=== PATIENT | female | born 1990 | race American Indian/Alaskan Native ===

== ENCOUNTER 2018-08-13 18:36 | Observation (INO) | payer MEDICAID ==
[2018-08-13] MEDS ORDERED: Acetaminophen 325 MG Tab PO ONE (19:21)
[2018-08-14] MEDS: Acetaminophen 325 MG Tab PO PRN ×2 (01:30→08:44)
[2018-08-14] MEDS ORDERED: Sodium Chloride 0.9% 10 ML Syringe FLUSH PRN (02:06)
[2018-08-14] MEDS ORDERED: Labetalol 100 MG Tab PO SCH (08:00)
== END 2018-08-14 11:35 | disposition home or self-care (01) ==
LOC: DL.OBCHECK 18:36 → DL.MS 21:18 → UNDOADMOB 21:18
PROVIDERS: ADMIT Obstetrics & Gynecology; ATTEND Obstetrics & Gynecology
DX: Z34.83 Encounter for supervision of other normal pregnancy, third trimester (principal); F12.90 Cannabis use, unspecified, uncomplicated; K08.89 Other specified disorders of teeth and supporting structures; M79.89 Other specified soft tissue disorders; I10 Essential (primary) hypertension; Z88.1 Allergy status to other antibiotic agents
CPT/HCPCS: 36415; 59025; 80305; 81003; 82565; 82570; 83615; 84156; 84450; 84460; 84520; 84550; 85027; A9270

== ENCOUNTER 2018-12-04 11:26 | Inpatient (IN) | payer MEDICAID, OTHER ==
[2018-12-04 11:54] LABS: ANION GAP 11.3; CHLORIDE,CL 104 mmol/L (101-111); SODIUM,NA 135 mmol/L (135-145)
[2018-12-04] MEDS ORDERED: Iopamidol 612 MG/ML 75 ML Bottle IVPUSH ONE (12:30)
[2018-12-04] MEDS ORDERED: Sodium Chloride 0.9% 1,000 ML IV ONE (12:30)
[2018-12-04] MEDS ORDERED: Meropenem Premix 1 GM in Premix Bag 1 BAG IV ONE (14:46)
--- NOTE | 2018-12-04 14:53 | EDM.PDOC ---
Scribed by Amber Maher 12/04/18 2118 for Mando Lund PA ED HPI GENERAL MEDICAL PROBLEM - General Chief Complaint: Genitourinary Problem Stated Complaint: AMBULANCE Time Seen by Provider: 12/04/18 11:30 Source of Information: Reports: Patient, RN, RN Notes Reviewed History Limitations: Reports: No Limitations - History of Present Illness INITIAL COMMENTS - FREE TEXT/NARRATIVE: A 28-year-old female presents to ER by [facility] with left flank pain that started last night. Patient reports marijuana and methamphetamine use 2 days ago. Patient reports history of kidney disease on treated with Cipro. She took 1 pill last night and 1 this a.m. Onset: Gradual Duration: Getting Worse Location: Reports: Other (left flank) Quality: Reports: Ache Severity: Severe Improves with: Reports: None Worsens with: Reports: None Associated Symptoms: Reports: No Other Symptoms Treatments PIN CHASER: Reports: Acetaminophen Left Flank Pain Score (Numeric/FACES): 10 - Related Data Allergies Allergy/AdvReac Type Severity Reaction Status Date / Time amoxicillin Allergy Severe Hives Verified 12/04/18 11:26 Home Meds: Home Meds PNV95/Ferrous Fumarate/FA [ Tablet] 1 tab PO DAILY 08/04/18 [History] Labetalol [Normodyne] 200 mg PO BID 10/07/18 [History] Past Medical History - Past Health History Medical/Surgical History: Denies Medical/Surgical History Cardiovascular History: Reports: Hypertension 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 ED EXAM, RENAL/ - Physical Exam Exam: See Below Exam Limited By: No Limitations General Appearance: Anxious Eye Exam: Bilateral Eye: EOMI, Normal Inspection, PERRL Ears: Normal External Exam, Normal Canal, Hearing Grossly Normal, Normal TMs Nose: Normal Inspection, Normal Mucosa, No Blood Throat/Mouth: Normal Inspection, Normal Lips, Normal Teeth, Normal Gums, Normal Oropharynx, Normal Voice, No Airway Compromise Head: Atraumatic, Normocephalic Neck: Normal Inspection, Supple, Non-Tender, Full Range of Motion Respiratory/Chest: No Respiratory Distress, Lungs Clear, Normal Breath Sounds, No Accessory Muscle Use, Chest Non-Tender Cardiovascular: Normal Peripheral Pulses, Regular Rate, Rhythm, No Edema, No Gallop, No JVD, No Murmur, No Rub GI/Abdominal: Other (left upper abdominal pain. Left flank pain. ) (Female) Exam: Deferred Rectal (Female) Exam: Deferred Back Exam: Normal Inspection, Full Range of Motion, NT Extremities: Normal Inspection, Normal Range of Motion, Non-Tender, Normal Capillary Refill, No Pedal Edema Neurological: Alert, Oriented, CN II-XII Intact, Normal Cognition, Normal Gait, Normal Reflexes, No Motor/Sensory Deficits Psychiatric: Normal Affect, Normal Mood Skin Exam: Warm, Dry, Intact, Normal Color, No Rash Lymphatic: No Adenopathy Course - Vital Signs Last Recorded V/S: Last Vital Signs Temp 37.1 C 12/04/18 11:23 Pulse 103 H 12/04/18 11:23 Resp 19 12/04/18 11:23 BP 134/98 H 12/04/18 11:23 Pulse Ox 99 12/04/18 11:23 - Orders/Labs/Meds Orders: Active Orders 24 hr Category Date Time Status Abdomen Pelvis w Cont [CT] Urgent Exams 12/04/18 12:30 Taken CULTURE BLOOD [BC] Stat Lab 12/04/18 11:25 Received CULTURE BLOOD [BC] Stat Lab 12/04/18 14:46 Ordered CULTURE URINE [RM] Urgent Lab 12/04/18 11:38 Received Meropenem Premix [Meropenem] 1 gm Med 12/04/18 14:46 Ordered Premix Bag 1 bag IV ONETIME Medication Orders Meropenem/Sodium Chloride 1 gm (/ Premix) 50 mls @ 100 mls/hr IV ONETIME ONE Stop: 12/04/18 15:15 Labs: Laboratory Tests 12/04/18 12/04/18 12/04/18 Range/Units 11:25 11:25 11:25 WBC 15.0 H (5.0-10.0) 10^3/uL RBC 4.51 (4.2-5.4) 10^6/uL Hgb 11.6 L (12.0-16.0) g/dL Hct 37.0 (37.0-47.0) % MCV 82.0 (80-100) fL MCH 25.7 L (27.0-34.0) pg MCHC 31.4 L (33.0-35.0) g/dL Plt Count 246 (150-450) 10^3/uL Neut % (Auto) 81.9 H (42.2-75.2) % Lymph % (Auto) 8.9 L (20.5-50.1) % [place] % (Auto) 8.5 H (2-8) % Eos % (Auto) 0.6 L (1.0-3.0) % Baso % (Auto) 0.1 (0.0-1.0) % Sodium 135 (135-145) mmol/L Potassium 3.3 L (3.6-5.0) mmol/L Chloride 104 (101-111) mmol/L Carbon Dioxide 23.0 (21.0-31.0) mmol/L Anion Gap 11.3 BUN 7 (7-18) mg/dL Creatinine 0.6 (0.6-1.3) mg/dL Est Cr Clr Drug Dosing 130.68 mL/min Estimated GFR (MDRD) > 60 BUN/Creatinine Ratio 11.66 Glucose 105 (74-105) mg/dL Lactic Acid 0.7 (0.5-2.2) mmol/L Calcium 8.5 (8.4-10.2) mg/dl Total Bilirubin 0.8 (0.2-1.0) mg/dL AST 26 (10-42) IU/L ALT 48 (10-60) IU/L Alkaline Phosphatase 67 (42-121) IU/L Total Protein 6.8 (6.7-8.2) g/dl Albumin 3.6 (3.2-5.5) g/dl Globulin 3.2 Albumin/Globulin Ratio 1.13 Urine Color (YELLOW) Urine Appearance (CLEAR) Urine pH (5.0-9.0) Ur Specific [place] (1.005-1.030) Urine Protein (NEGATIVE) Urine Glucose (UA) (NEGATIVE) Urine Ketones (NEGATIVE) Urine Occult Blood (NEGATIVE) Urine Nitrite (NEGATIVE) Urine Bilirubin (NEGATIVE) Urine Urobilinogen (0.2-1.0) mg/dL Ur Leukocyte Esterase (NEGATIVE) Urine RBC /HPF Urine WBC (0-5/HPF) /HPF Ur Epithelial Cells (NOT SEEN) /HPF Amorphous Sediment (NOT SEEN) /HPF Urine Bacteria (0-FEW/HPF) /HPF Urine Mucus (NOT SEEN) /LPF Urine HCG, Qual Urine Opiates Screen (NEGATIVE) Ur Oxycodone Screen (NEGATIVE) Urine Methadone Screen (NEGATIVE) Ur Barbiturates Screen (NEGATIVE) U Tricyclic Antidepress (NEGATIVE) Ur Phencyclidine Scrn (NEGATIVE) Ur Amphetamine Screen (NEGATIVE) U Methamphetamines Scrn (NEGATIVE) Urine MDMA Screen (NEGATIVE) U Benzodiazepines Scrn (NEGATIVE) Urine Cocaine Screen (NEGATIVE) U Marijuana (THC) Screen (NEGATIVE) 12/04/18 12/04/18 12/04/18 Range/Units 11:34 11:38 11:38 WBC (5.0-10.0) 10^3/uL RBC (4.2-5.4) 10^6/uL Hgb (12.0-16.0) g/dL Hct (37.0-47.0) % MCV (80-100) fL MCH (27.0-34.0) pg MCHC (33.0-35.0) g/dL Plt Count (150-450) 10^3/uL Neut % (Auto) (42.2-75.2) % Lymph % (Auto) (20.5-50.1) % Crowley % (Auto) (2-8) % Eos % (Auto) (1.0-3.0) % Baso % (Auto) (0.0-1.0) % Sodium (135-145) mmol/L Potassium (3.6-5.0) mmol/L Chloride (101-111) mmol/L Carbon Dioxide (21.0-31.0) mmol/L Anion Gap BUN (7-18) mg/dL Creatinine (0.6-1.3) mg/dL Est Cr Clr Drug Dosing mL/min Estimated GFR (MDRD) BUN/Creatinine Ratio Glucose (74-105) mg/dL Lactic Acid (0.5-2.2) mmol/L Calcium (8.4-10.2) mg/dl Total Bilirubin (0.2-1.0) mg/dL AST (10-42) IU/L ALT (10-60) IU/L Alkaline Phosphatase (42-121) IU/L Total Protein (6.7-8.2) g/dl Albumin (3.2-5.5) g/dl Globulin Albumin/Globulin Ratio Urine Color Yellow (YELLOW) Urine Appearance Clear (CLEAR) Urine pH 7.0 (5.0-9.0) Ur Specific [place] 1.025 (1.005-1.030) Urine Protein 30 H (NEGATIVE) Urine Glucose (UA) Negative (NEGATIVE) Urine Ketones Negative (NEGATIVE) Urine Occult Blood Small H (NEGATIVE) Urine Nitrite Negative (NEGATIVE) Urine Bilirubin Negative (NEGATIVE) Urine Urobilinogen 0.2 (0.2-1.0) mg/dL Ur Leukocyte Esterase Trace H (NEGATIVE) Urine RBC 10-20 H /HPF Urine WBC 0-5 (0-5/HPF) /HPF Ur Epithelial Cells Moderate H (NOT SEEN) /HPF Amorphous Sediment Few (NOT SEEN) /HPF Urine Bacteria Few (0-FEW/HPF) /HPF Urine Mucus Few H (NOT SEEN) /LPF Urine HCG, Qual Negative Urine Opiates Screen Negative (NEGATIVE) Ur Oxycodone Screen Negative (NEGATIVE) Urine Methadone Screen Negative (NEGATIVE) Ur Barbiturates Screen Negative (NEGATIVE) U Tricyclic Antidepress Negative (NEGATIVE) Ur Phencyclidine Scrn Negative (NEGATIVE) Ur Amphetamine Screen Positive H (NEGATIVE) U Methamphetamines Scrn Positive H (NEGATIVE) Urine MDMA Screen Negative (NEGATIVE) U Benzodiazepines Scrn Negative (NEGATIVE) Urine Cocaine Screen Negative (NEGATIVE) U Marijuana (THC) Screen Positive H (NEGATIVE) Meds: Medications Generic Name Dose Route Start Last Admin Trade Name Freq PRN Reason Stop Dose Admin Meropenem/Sodium Chloride 1 gm 50 mls @ 100 mls/hr 12/04/18 14:46 / Premix IV 12/04/18 15:15 ONETIME ONE Discontinued Medications Generic Name Dose Route Start Last Admin Trade Name Freq PRN Reason Stop Dose Admin Sodium Chloride 1,000 mls @ 999 mls/hr 12/04/18 12:30 12/04/18 13:14 Normal Saline IV 12/04/18 13:30 999 mls/hr .BOLUS ONE Administration Iopamidol 75 ml 12/04/18 12:30 12/04/18 12:48 Isovue-300 (61%) IVPUSH 12/04/18 12:31 75 ml ONETIME ONE Administration Departure - Departure Time of Disposition: 14:51 Disposition: Admitted As Inpatient 66 Condition: Fair Clinical Impression: Pyelonephritis - Discharge Information *PRESCRIPTION DRUG MONITORING PROGRAM REVIEWED*: Not Applicable *COPY OF PRESCRIPTION DRUG MONITORING REPORT IN PATIENT MARCOS: Not Applicable Care Plan Goals: Discussed the patient's history, examination, lab and CT results with Dr. Grullon. Dr. Grullon accepted the patient for continued evaluation and management as an inpatient at [facility] in [place]. - My Orders Last 24 Hours: My Active Orders 12/04/18 11:25 CULTURE BLOOD [BC] Stat 12/04/18 11:38 CULTURE URINE [RM] Urgent 12/04/18 12:30 Abdomen Pelvis w Cont [CT] Urgent 12/04/18 14:46 CULTURE BLOOD [BC] Stat Meropenem Premix [Meropenem] 1 gm Premix Bag 1 bag IV ONETIME - Assessment/Plan Last 24 Hours: My Active Orders 12/04/18 11:25 CULTURE BLOOD [BC] Stat 12/04/18 11:38 CULTURE URINE [RM] Urgent 12/04/18 12:30 Abdomen Pelvis w Cont [CT] Urgent 12/04/18 14:46 CULTURE BLOOD [BC] Stat Meropenem Premix [Meropenem] 1 gm Premix Bag 1 bag IV ONETIME I have read and agree with the documentation that has been completed regarding this visit. By signing this record, I attest that the documentation was completed in my physical presence and is an accurate record of the encounter.
[2018-12-04] MEDS ORDERED: Polyethylene Glycol 3350 Powder 17 GM Packet PO PRN (15:21)
[2018-12-04] MEDS ORDERED: Promethazine 25 MG/ML SDV IM PRN (15:21)
[2018-12-04] MEDS ORDERED: Ondansetron 4 MG Tab.DIS PO PRN (15:21)
[2018-12-04] MEDS ORDERED: Bisacodyl 5 MG Tab PO PRN (15:21)
[2018-12-04] MEDS ORDERED: Docusate Sodium 100 MG Cap PO PRN (15:21)
[2018-12-04] MEDS ORDERED: Ondansetron 4 MG/2 ML SDV IVPUSH PRN (15:21)
[2018-12-04] MEDS ORDERED: Promethazine 25 MG Tab PO PRN (15:21)
[2018-12-04] MEDS ORDERED: Morphine 2 MG/ML Syringe IVPUSH ONE (15:25)
[2018-12-04] MEDS ORDERED: Potassium Chloride 10 MEQ Tab.ER PO ONE (15:33)
--- NOTE | 2018-12-04 15:39 | PCM.HP ---
H&P History of Present Illness - General Date of Service: 12/04/18 Admit Problem/Dx: Admission Diagnosis/Problem Admission Diagnosis/Problem Pyelonephritis Source of Information: Patient, Old Records, Provider History Limitations: Reports: No Limitations - History of Present Illness Initial Comments - Free Text/Narative: Patient is a 28 y.o female with medical history significant for UTI, gestational HTN, substance use disorder, and tobacco use disorder who presented to the ED with complaints of left flank pain that started yesterday. Patient reports that she started having 8/10 left flank, non-radiating pain yesterday associated with chills. States she has not taken any medication for this. Denies any trauma. Had nausea yesterday but denies emesis. Took reglan for nausea, which helped. She reports that she was seen in October and diagnosed with UTI. She was started on Cipro and discharged home with outpatient follow up. Did not make her follow up appointment. She denies dysuria or hematuria, chest pain, SOB, d/c, or any new symptoms. Smokes one pack of cigarettes daily. Injects meth occasionally and smokes marijuana almost every day. 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 Psychiatric History: Reports: Addiction - Infectious Disease History Infectious Disease History: Reports: Chicken Pox - Past Surgical History Female Surgical History: Reports: Section Social & Family History - Family History Family Medical History: Noncontributory - Tobacco Use Smoking Status *Q: Current Every Day Smoker Years of Tobacco use: 10 Packs/Tins Daily: 1 - Caffeine Use Caffeine Use: Reports: None - Recreational Drug Use Recreational Drug Use: Yes Recreational Drug Type: Reports: Marijuana/Hashish, Methamphetamine H&P Review of Systems - Review of Systems: Review Of Systems: ROS reveals no pertinent complaints other than HPI. Exam - Exam Exam: See Below - Vital Signs Vital Signs: Last Vital Signs Temp 99.7 F 12/04/18 15:08 Pulse 103 H 12/04/18 15:08 Resp 20 12/04/18 15:08 BP 138/84 12/04/18 15:08 Pulse Ox 100 12/04/18 15:08 Weight: 169 lb 3.2 oz - Exam Physical Exam Comments:: General: Alert and oriented to place, time and person. In moderate to severe distress. Head: atraumatic and normocephalic. Eyes: PERRLA, EOMI, anicteric, Ear, Nose and Throat: No gross abnormality found Neck: Supple Respiratory/Chest: Tachypneic, otherwise CTAB, no wheezes, crackles, rales, or rhonci; Good air entry bilaterally. increased work of breathing CVS: RRR, no murmur, rub, or gallop, peripheral pulses palpable. Gastrointestinal/Abd: Soft, non-distended, non-tender. Normal bowel sounds. Skin: No acute rashes noted. Neuro: Grossly non-focal. No cranial nerve abnormality. Moves all extremities. Psych: Alert and oriented to place time and person. No hallucinations or delusions noted. Musculoskeletal: No abnormality noted. Ext: No edema, no ulcers, no tenderness, no size differences, : Left costovertebral angle tenderness - Patient Data Lab Results Last 24 hrs: Laboratory Results - last 24 hr 12/04/18 12/04/18 12/04/18 Range/Units 11:25 11:25 11:25 WBC 15.0 H (5.0-10.0) 10^3/uL RBC 4.51 (4.2-5.4) 10^6/uL Hgb 11.6 L (12.0-16.0) g/dL Hct 37.0 (37.0-47.0) % MCV 82.0 (80-100) fL MCH 25.7 L (27.0-34.0) pg MCHC 31.4 L (33.0-35.0) g/dL Plt Count 246 (150-450) 10^3/uL Neut % (Auto) 81.9 H (42.2-75.2) % Lymph % (Auto) 8.9 L (20.5-50.1) % [place] % (Auto) 8.5 H (2-8) % Eos % (Auto) 0.6 L (1.0-3.0) % Baso % (Auto) 0.1 (0.0-1.0) % Sodium 135 (135-145) mmol/L Potassium 3.3 L (3.6-5.0) mmol/L Chloride 104 (101-111) mmol/L Carbon Dioxide 23.0 (21.0-31.0) mmol/L Anion Gap 11.3 BUN 7 (7-18) mg/dL Creatinine 0.6 (0.6-1.3) mg/dL Est Cr Clr Drug Dosing 130.68 mL/min Estimated GFR (MDRD) > 60 BUN/Creatinine Ratio 11.66 Glucose 105 (74-105) mg/dL Lactic Acid 0.7 (0.5-2.2) mmol/L Calcium 8.5 (8.4-10.2) mg/dl Total Bilirubin 0.8 (0.2-1.0) mg/dL AST 26 (10-42) IU/L ALT 48 (10-60) IU/L Alkaline Phosphatase 67 (42-121) IU/L Total Protein 6.8 (6.7-8.2) g/dl Albumin 3.6 (3.2-5.5) g/dl Globulin 3.2 Albumin/Globulin Ratio 1.13 Urine Color (YELLOW) Urine Appearance (CLEAR) Urine pH (5.0-9.0) Ur Specific [place] (1.005-1.030) Urine Protein (NEGATIVE) Urine Glucose (UA) (NEGATIVE) Urine Ketones (NEGATIVE) Urine Occult Blood (NEGATIVE) Urine Nitrite (NEGATIVE) Urine Bilirubin (NEGATIVE) Urine Urobilinogen (0.2-1.0) mg/dL Ur Leukocyte Esterase (NEGATIVE) Urine RBC /HPF Urine WBC (0-5/HPF) /HPF Ur Epithelial Cells (NOT SEEN) /HPF Amorphous Sediment (NOT SEEN) /HPF Urine Bacteria (0-FEW/HPF) /HPF Urine Mucus (NOT SEEN) /LPF Urine HCG, Qual Urine Opiates Screen (NEGATIVE) Ur Oxycodone Screen (NEGATIVE) Urine Methadone Screen (NEGATIVE) Ur Barbiturates Screen (NEGATIVE) U Tricyclic Antidepress (NEGATIVE) Ur Phencyclidine Scrn (NEGATIVE) Ur Amphetamine Screen (NEGATIVE) U Methamphetamines Scrn (NEGATIVE) Urine MDMA Screen (NEGATIVE) U Benzodiazepines Scrn (NEGATIVE) Urine Cocaine Screen (NEGATIVE) U Marijuana (THC) Screen (NEGATIVE) 12/04/18 12/04/18 12/04/18 Range/Units 11:34 11:38 11:38 WBC (5.0-10.0) 10^3/uL RBC (4.2-5.4) 10^6/uL Hgb (12.0-16.0) g/dL Hct (37.0-47.0) % MCV (80-100) fL MCH (27.0-34.0) pg MCHC (33.0-35.0) g/dL Plt Count (150-450) 10^3/uL Neut % (Auto) (42.2-75.2) % Lymph % (Auto) (20.5-50.1) % [place] % (Auto) (2-8) % Eos % (Auto) (1.0-3.0) % Baso % (Auto) (0.0-1.0) % Sodium (135-145) mmol/L Potassium (3.6-5.0) mmol/L Chloride (101-111) mmol/L Carbon Dioxide (21.0-31.0) mmol/L Anion Gap BUN (7-18) mg/dL Creatinine (0.6-1.3) mg/dL Est Cr Clr Drug Dosing mL/min Estimated GFR (MDRD) BUN/Creatinine Ratio Glucose (74-105) mg/dL Lactic Acid (0.5-2.2) mmol/L Calcium (8.4-10.2) mg/dl Total Bilirubin (0.2-1.0) mg/dL AST (10-42) IU/L ALT (10-60) IU/L Alkaline Phosphatase (42-121) IU/L Total Protein (6.7-8.2) g/dl Albumin (3.2-5.5) g/dl Globulin Albumin/Globulin Ratio Urine Color Yellow (YELLOW) Urine Appearance Clear (CLEAR) Urine pH 7.0 (5.0-9.0) Ur Specific [place] 1.025 (1.005-1.030) Urine Protein 30 H (NEGATIVE) Urine Glucose (UA) Negative (NEGATIVE) Urine Ketones Negative (NEGATIVE) Urine Occult Blood Small H (NEGATIVE) Urine Nitrite Negative (NEGATIVE) Urine Bilirubin Negative (NEGATIVE) Urine Urobilinogen 0.2 (0.2-1.0) mg/dL Ur Leukocyte Esterase Trace H (NEGATIVE) Urine RBC 10-20 H /HPF Urine WBC 0-5 (0-5/HPF) /HPF Ur Epithelial Cells Moderate H (NOT SEEN) /HPF Amorphous Sediment Few (NOT SEEN) /HPF Urine Bacteria Few (0-FEW/HPF) /HPF Urine Mucus Few H (NOT SEEN) /LPF Urine HCG, Qual Negative Urine Opiates Screen Negative (NEGATIVE) Ur Oxycodone Screen Negative (NEGATIVE) Urine Methadone Screen Negative (NEGATIVE) Ur Barbiturates Screen Negative (NEGATIVE) U Tricyclic Antidepress Negative (NEGATIVE) Ur Phencyclidine Scrn Negative (NEGATIVE) Ur Amphetamine Screen Positive H (NEGATIVE) U Methamphetamines Scrn Positive H (NEGATIVE) Urine MDMA Screen Negative (NEGATIVE) U Benzodiazepines Scrn Negative (NEGATIVE) Urine Cocaine Screen Negative (NEGATIVE) U Marijuana (THC) Screen Positive H (NEGATIVE) Result Diagrams: 12/04/18 11:25 12/04/18 11:25 - Problem List (1) Polysubstance abuse SNOMED Code(s): 277188228 ICD Code: F19.10 - OTHER PSYCHOACTIVE SUBSTANCE ABUSE, UNCOMPLICATED Status : Acute Current Visit: Yes (2) Tobacco use disorder SNOMED Code(s): 240531086 ICD Code: F17.200 - NICOTINE DEPENDENCE, UNSPECIFIED, UNCOMPLICATED Status : Acute Current Visit: Yes (3) Hypokalemia SNOMED Code(s): 26918246 ICD Code: E87.6 - HYPOKALEMIA Status: Acute Current Visit: Yes (4) Pyelonephritis SNOMED Code(s): 53793097 ICD Code: N12 - TUBULO-INTERSTITIAL NEPHRITIS, NOT SPCF ACUTE OR CHRONIC Status: Acute Current Visit: No (5) Sepsis SNOMED Code(s): 87722188 ICD Code: A41.9 - SEPSIS, UNSPECIFIED ORGANISM Status: Acute Current Visit: Yes Problem List Initiated/Reviewed/Updated: Yes Orders Last 24hrs: Active Orders 24 hr Category Date Time Status Admission Diagnosis [ADT] Routine ADT 12/04/18 14:56 Ordered Patient Status [ADT] Routine ADT 12/04/18 14:56 Active Oxygen Therapy [RC] PRN Care 12/04/18 15:21 Ordered Up ad Kalli [RC] ASDIRECTED Care 12/04/18 15:21 Ordered VTE/DVT Education [RC] PER UNIT ROUTINE Care 12/04/18 15:21 Ordered Vital Signs [RC] Q4H Care 12/04/18 15:21 Ordered Regular Diet [DIET] Diet 12/04/18 Dinner Ordered Abdomen Pelvis w Cont [CT] Urgent Exams 12/04/18 12:30 Taken BASIC METABOLIC PANEL,BMP [CHEM] AM Lab 12/05/18 05:11 Ordered CBC W/O DIFF,HEMOGRAM [HEME] AM Lab 12/05/18 05:11 Ordered CULTURE BLOOD [BC] Stat Lab 12/04/18 11:25 Received CULTURE BLOOD [BC] Stat Lab 12/04/18 14:59 Received CULTURE URINE [RM] Urgent Lab 12/04/18 11:38 Received MAGNESIUM [CHEM] AM Lab 12/05/18 05:11 Ordered PHOSPHORUS [CHEM] AM Lab 12/05/18 05:11 Ordered Acetaminophen [Tylenol] Med 12/04/18 15:21 Ordered 650 mg PO Q4H PRN Bisacodyl [Dulcolax] Med 12/04/18 15:21 Ordered 5 mg PO DAILY PRN Docusate Sodium [Colace] Med 12/04/18 15:21 Ordered 100 mg PO BID PRN Docusate Sodium/Sennosides [Senna Plus] Med 12/04/18 15:21 Ordered 1 tab PO BEDTIME PRN Enoxaparin [Lovenox] Med 12/05/18 09:00 Ordered 40 mg SUBCUT DAILY Ibuprofen [Motrin] Med 12/04/18 15:21 Ordered 800 mg PO Q6H PRN Labetalol [Normodyne] Med 12/04/18 21:00 Ordered 200 mg PO BID Meropenem Premix [Meropenem] 1 gm Med 12/04/18 22:00 Ordered Premix Bag 1 bag IV Q8HR Ondansetron [Zofran ODT] Med 12/04/18 15:21 Ordered 4 mg PO Q6H PRN Ondansetron [Zofran] Med 12/04/18 15:21 Ordered 4 mg IVPUSH Q6H PRN PNV95/Ferrous Fumarate/FA [ Tablet] Med 12/05/18 09:00 Ordered 1 tab PO DAILY Polyethylene Glycol 3350 [MiraLAX] Med 12/04/18 15:21 Ordered 17 gm PO DAILY PRN Potassium Chloride [Klor-Con 10] Med 12/04/18 15:33 Once 40 meq PO ONETIME ONE Promethazine [Phenergan] Med 12/04/18 15:21 Ordered 25 mg PO Q6H PRN Promethazine [Phenergan] Med 12/04/18 15:21 Ordered 6.25 mg IM Q6H PRN Sodium Chloride 0.9% [Normal Saline] 1,000 ml Med 12/04/18 15:30 Ordered IV ASDIRECTED Resuscitation Status Routine Resus Stat 12/04/18 15:21 Ordered Medication Orders Acetaminophen (Tylenol) 650 mg PO Q4H PRN PRN Reason: Pain (Mild 1-3)/fever Bisacodyl (Dulcolax) 5 mg PO DAILY PRN PRN Reason: Constipation Docusate Sodium (Colace) 100 mg PO BID PRN PRN Reason: Constipation Enoxaparin Sodium (Lovenox) 40 mg SUBCUT DAILY [facility] Sodium Chloride (Normal Saline) 1,000 mls @ 100 mls/hr IV ASDIRECTED NITISH Stop: 12/05/18 07:31 Meropenem/Sodium Chloride 1 gm (/ Premix) 50 mls @ 100 mls/hr IV Q8HR [facility] Stop: 12/11/18 22:01 Ibuprofen (Motrin) 800 mg PO Q6H PRN PRN Reason: Pain (moderate 4-6) Labetalol HCl (Normodyne) 200 mg PO BID [facility] Non-Formulary Medication (Pnv95/Ferrous Fumarate/Fa [ Tablet]) 1 tab PO DAILY [facility] Ondansetron HCl (Zofran Odt) 4 mg PO Q6H PRN PRN Reason: nausea, able to take PO Ondansetron HCl (Zofran) 4 mg IVPUSH Q6H PRN PRN Reason: Nausea/Vomiting Polyethylene Glycol (Miralax) 17 gm PO DAILY PRN PRN Reason: Constipation Potassium Chloride (Klor-Con 10) 40 meq PO ONETIME ONE Stop: 12/04/18 15:34 Promethazine HCl (Phenergan) 25 mg PO Q6H PRN PRN Reason: nausea, able to take PO Promethazine HCl (Phenergan) 6.25 mg IM Q6H PRN PRN Reason: Nausea/Vomiting Senna/Docusate Sodium (Senna Plus) 1 tab PO BEDTIME PRN PRN Reason: Constipation Assessment/Plan Comment:: #Sepsis #Pyelonephritis: - Patient with left flank pain, positive CT findings of pyelonephritis, leukocytosis, and tachypnea. Was started on Cipro for UTI in October. - Reportedly did not complete antibiotics. - Follow up on blood cultures - Start Rocephin, has documented history of allergy to amoxicillin which patient has stated she thinks she broke out in hives. - If patient does not tolerate rocephin, will start back on meropenem. - Follow up on urine culture #Left flank pain: - One time dose of IV morphine. - Patient encouraged to report pain <7 so we can avoid opiates. - Ibuprofen and tylenol - IV hydration #Hypokalemia: - Oral replacement - Monitor renal function and replace electrolytes #Tobacco use disorder: smokes 1 pack of cigarettes daily. - NRT - Smoking cessation counseling. #Polysubstance abuse: - Counseling provided. - We will avoid opiates as much as possible. Patient verbalizes understanding and agreement. PPx: DVT: Lovenox GI: Regular diet Code status: Full
[2018-12-04] MEDS: Sodium Chloride 0.9% 1,000 ML IV SCH (16:00)
[2018-12-04] MEDS: cefTRIAXone 2 GM in Sodium Chloride 0.9% 100 ML IV SCH (16:10)
[2018-12-04] MEDS ORDERED: Sodium Chloride 0.9% 10 ML Syringe FLUSH PRN (16:58)
[2018-12-04] MEDS: Ibuprofen 800 MG Tab PO PRN (19:22)
[2018-12-04] MEDS: Acetaminophen 325 MG Tab PO PRN (19:23)
[2018-12-04] MEDS ORDERED: cefTRIAXone 2 GM in Sodium Chloride 0.9% 100 ML IV SCH (21:00)
[2018-12-04] MEDS ORDERED: Labetalol 100 MG Tab PO SCH (21:00)
[2018-12-04] MEDS: Check Patch TRDERM SCH (22:00)
[2018-12-04] MEDS ORDERED: Meropenem Premix 1 GM in Premix Bag 1 BAG IV SCH (22:00)
[2018-12-05] MEDS: Sodium Chloride 0.9% 1,000 ML IV SCH (02:03)
[2018-12-05] MEDS: Acetaminophen 325 MG Tab PO PRN ×3 (04:11→16:15)
[2018-12-05 06:29] LABS: ANION GAP 11.4; CHLORIDE,CL 110 mmol/L (101-111); SODIUM,NA 139 mmol/L (135-145)
[2018-12-05] MEDS: Ibuprofen 800 MG Tab PO PRN ×2 (08:26→16:51)
[2018-12-05] MEDS: Enoxaparin 40 MG/0.4 ML Syringe SUBCUT SCH (08:27)
[2018-12-05] MEDS: Nicotine 21 MG/24 Hr Patch TRDERM SCH (08:28)
[2018-12-05] MEDS ORDERED: Potassium Chloride 10 MEQ Tab.ER PO ONE (08:37)
[2018-12-05] MEDS ORDERED: Prenatal Multivitamin with Calcium/Folic Acid/Iron Tab PO SCH (09:00)
--- NOTE | 2018-12-05 10:23 | PCM.PN ---
- General Info Date of Service: 12/05/18 Admission Dx/Problem (Free Text): Admission Diagnosis/Problem Admission Diagnosis/Problem Pyelonephritis Subjective Update: No acute events overnight. Reports that her pain is well controlled on current medications. Denies f/c, chest pain, shortness of breath, n/v/d/c, dysuria, hematuria, or any new symptoms. Functional Status: Reports: Pain Controlled - Patient Data Vitals - Most Recent: Last Vital Signs Temp 98.4 F 12/05/18 08:00 Pulse 96 12/05/18 08:00 Resp 18 12/05/18 08:00 BP 121/76 12/05/18 08:00 Pulse Ox 100 12/05/18 08:00 Weight - Most Recent: 169 lb 3.2 oz I&O - Last 24 Hours: Intake & Output 12/04/18 12/05/18 12/05/18 22:59 06:59 14:59 Intake Total 500 Balance 500 Lab Results Last 24 Hours: Laboratory Results - last 24 hr 12/04/18 12/04/18 12/04/18 Range/Units 11:25 11:25 11:25 WBC 15.0 H (5.0-10.0) 10^3/uL RBC 4.51 (4.2-5.4) 10^6/uL Hgb 11.6 L (12.0-16.0) g/dL Hct 37.0 (37.0-47.0) % MCV 82.0 (80-100) fL MCH 25.7 L (27.0-34.0) pg MCHC 31.4 L (33.0-35.0) g/dL Plt Count 246 (150-450) 10^3/uL Neut % (Auto) 81.9 H (42.2-75.2) % Lymph % (Auto) 8.9 L (20.5-50.1) % [place] % (Auto) 8.5 H (2-8) % Eos % (Auto) 0.6 L (1.0-3.0) % Baso % (Auto) 0.1 (0.0-1.0) % Sodium 135 (135-145) mmol/L Potassium 3.3 L (3.6-5.0) mmol/L Chloride 104 (101-111) mmol/L Carbon Dioxide 23.0 (21.0-31.0) mmol/L Anion Gap 11.3 BUN 7 (7-18) mg/dL Creatinine 0.6 (0.6-1.3) mg/dL Est Cr Clr Drug Dosing 130.68 mL/min Estimated GFR (MDRD) > 60 BUN/Creatinine Ratio 11.66 Glucose 105 (74-105) mg/dL Lactic Acid 0.7 (0.5-2.2) mmol/L Calcium 8.5 (8.4-10.2) mg/dl Phosphorus (2.5-4.6) mg/dL Magnesium (1.8-2.5) mg/dL Total Bilirubin 0.8 (0.2-1.0) mg/dL AST 26 (10-42) IU/L ALT 48 (10-60) IU/L Alkaline Phosphatase 67 (42-121) IU/L Total Protein 6.8 (6.7-8.2) g/dl Albumin 3.6 (3.2-5.5) g/dl Globulin 3.2 Albumin/Globulin Ratio 1.13 Urine Color (YELLOW) Urine Appearance (CLEAR) Urine pH (5.0-9.0) Ur Specific [place] (1.005-1.030) Urine Protein (NEGATIVE) Urine Glucose (UA) (NEGATIVE) Urine Ketones (NEGATIVE) Urine Occult Blood (NEGATIVE) Urine Nitrite (NEGATIVE) Urine Bilirubin (NEGATIVE) Urine Urobilinogen (0.2-1.0) mg/dL Ur Leukocyte Esterase (NEGATIVE) Urine RBC /HPF Urine WBC (0-5/HPF) /HPF Ur Epithelial Cells (NOT SEEN) /HPF Amorphous Sediment (NOT SEEN) /HPF Urine Bacteria (0-FEW/HPF) /HPF Urine Mucus (NOT SEEN) /LPF Urine HCG, Qual Urine Opiates Screen (NEGATIVE) Ur Oxycodone Screen (NEGATIVE) Urine Methadone Screen (NEGATIVE) Ur Barbiturates Screen (NEGATIVE) U Tricyclic Antidepress (NEGATIVE) Ur Phencyclidine Scrn (NEGATIVE) Ur Amphetamine Screen (NEGATIVE) U Methamphetamines Scrn (NEGATIVE) Urine MDMA Screen (NEGATIVE) U Benzodiazepines Scrn (NEGATIVE) Urine Cocaine Screen (NEGATIVE) U Marijuana (THC) Screen (NEGATIVE) 12/04/18 12/04/18 12/04/18 Range/Units 11:34 11:38 11:38 WBC (5.0-10.0) 10^3/uL RBC (4.2-5.4) 10^6/uL Hgb (12.0-16.0) g/dL Hct (37.0-47.0) % MCV (80-100) fL MCH (27.0-34.0) pg MCHC (33.0-35.0) g/dL Plt Count (150-450) 10^3/uL Neut % (Auto) (42.2-75.2) % Lymph % (Auto) (20.5-50.1) % [place] % (Auto) (2-8) % Eos % (Auto) (1.0-3.0) % Baso % (Auto) (0.0-1.0) % Sodium (135-145) mmol/L Potassium (3.6-5.0) mmol/L Chloride (101-111) mmol/L Carbon Dioxide (21.0-31.0) mmol/L Anion Gap BUN (7-18) mg/dL Creatinine (0.6-1.3) mg/dL Est Cr Clr Drug Dosing mL/min Estimated GFR (MDRD) BUN/Creatinine Ratio Glucose (74-105) mg/dL Lactic Acid (0.5-2.2) mmol/L Calcium (8.4-10.2) mg/dl Phosphorus (2.5-4.6) mg/dL Magnesium (1.8-2.5) mg/dL Total Bilirubin (0.2-1.0) mg/dL AST (10-42) IU/L ALT (10-60) IU/L Alkaline Phosphatase (42-121) IU/L Total Protein (6.7-8.2) g/dl Albumin (3.2-5.5) g/dl Globulin Albumin/Globulin Ratio Urine Color Yellow (YELLOW) Urine Appearance Clear (CLEAR) Urine pH 7.0 (5.0-9.0) Ur Specific [place] 1.025 (1.005-1.030) Urine Protein 30 H (NEGATIVE) Urine Glucose (UA) Negative (NEGATIVE) Urine Ketones Negative (NEGATIVE) Urine Occult Blood Small H (NEGATIVE) Urine Nitrite Negative (NEGATIVE) Urine Bilirubin Negative (NEGATIVE) Urine Urobilinogen 0.2 (0.2-1.0) mg/dL Ur Leukocyte Esterase Trace H (NEGATIVE) Urine RBC 10-20 H /HPF Urine WBC 0-5 (0-5/HPF) /HPF Ur Epithelial Cells Moderate H (NOT SEEN) /HPF Amorphous Sediment Few (NOT SEEN) /HPF Urine Bacteria Few (0-FEW/HPF) /HPF Urine Mucus Few H (NOT SEEN) /LPF Urine HCG, Qual Negative Urine Opiates Screen Negative (NEGATIVE) Ur Oxycodone Screen Negative (NEGATIVE) Urine Methadone Screen Negative (NEGATIVE) Ur Barbiturates Screen Negative (NEGATIVE) U Tricyclic Antidepress Negative (NEGATIVE) Ur Phencyclidine Scrn Negative (NEGATIVE) Ur Amphetamine Screen Positive H (NEGATIVE) U Methamphetamines Scrn Positive H (NEGATIVE) Urine MDMA Screen Negative (NEGATIVE) U Benzodiazepines Scrn Negative (NEGATIVE) Urine Cocaine Screen Negative (NEGATIVE) U Marijuana (THC) Screen Positive H (NEGATIVE) 12/05/18 12/05/18 Range/Units 05:40 05:40 WBC 12.7 H (5.0-10.0) 10^3/uL RBC 4.12 L (4.2-5.4) 10^6/uL Hgb 10.7 L (12.0-16.0) g/dL Hct 34.1 L (37.0-47.0) % MCV 82.8 (80-100) fL MCH 26.0 L (27.0-34.0) pg MCHC 31.4 L (33.0-35.0) g/dL Plt Count 213 (150-450) 10^3/uL Neut % (Auto) (42.2-75.2) % Lymph % (Auto) (20.5-50.1) % [place] % (Auto) (2-8) % Eos % (Auto) (1.0-3.0) % Baso % (Auto) (0.0-1.0) % Sodium 139 (135-145) mmol/L Potassium 3.4 L (3.6-5.0) mmol/L Chloride 110 (101-111) mmol/L Carbon Dioxide 21.0 (21.0-31.0) mmol/L Anion Gap 11.4 BUN 7 (7-18) mg/dL Creatinine 0.5 L (0.6-1.3) mg/dL Est Cr Clr Drug Dosing 156.81 mL/min Estimated GFR (MDRD) > 60 BUN/Creatinine Ratio Glucose 100 (74-105) mg/dL Lactic Acid (0.5-2.2) mmol/L Calcium 7.8 L (8.4-10.2) mg/dl Phosphorus 3.1 (2.5-4.6) mg/dL Magnesium 1.7 L (1.8-2.5) mg/dL Total Bilirubin (0.2-1.0) mg/dL AST (10-42) IU/L ALT (10-60) IU/L Alkaline Phosphatase (42-121) IU/L Total Protein (6.7-8.2) g/dl Albumin (3.2-5.5) g/dl Globulin Albumin/Globulin Ratio Urine Color (YELLOW) Urine Appearance (CLEAR) Urine pH (5.0-9.0) Ur Specific [place] (1.005-1.030) Urine Protein (NEGATIVE) Urine Glucose (UA) (NEGATIVE) Urine Ketones (NEGATIVE) Urine Occult Blood (NEGATIVE) Urine Nitrite (NEGATIVE) Urine Bilirubin (NEGATIVE) Urine Urobilinogen (0.2-1.0) mg/dL Ur Leukocyte Esterase (NEGATIVE) Urine RBC /HPF Urine WBC (0-5/HPF) /HPF Ur Epithelial Cells (NOT SEEN) /HPF Amorphous Sediment (NOT SEEN) /HPF Urine Bacteria (0-FEW/HPF) /HPF Urine Mucus (NOT SEEN) /LPF Urine HCG, Qual Urine Opiates Screen (NEGATIVE) Ur Oxycodone Screen (NEGATIVE) Urine Methadone Screen (NEGATIVE) Ur Barbiturates Screen (NEGATIVE) U Tricyclic Antidepress (NEGATIVE) Ur Phencyclidine Scrn (NEGATIVE) Ur Amphetamine Screen (NEGATIVE) U Methamphetamines Scrn (NEGATIVE) Urine MDMA Screen (NEGATIVE) U Benzodiazepines Scrn (NEGATIVE) Urine Cocaine Screen (NEGATIVE) U Marijuana (THC) Screen (NEGATIVE) Ashok Results Last 24 Hours: Microbiology 12/04/18 11:38 Urine Culture - Preliminary Urine, Voided Med Orders - Current: Current Medications Acetaminophen (Tylenol) 650 mg PO Q4H PRN PRN Reason: Pain (Mild 1-3)/fever Last Admin: 12/05/18 08:26 Dose: 650 mg Bisacodyl (Dulcolax) 5 mg PO DAILY PRN PRN Reason: Constipation Docusate Sodium (Colace) 100 mg PO BID PRN PRN Reason: Constipation Enoxaparin Sodium (Lovenox) 40 mg SUBCUT DAILY [facility] Last Admin: 12/05/18 08:27 Dose: 40 mg Ceftriaxone Sodium 2 gm/ (Sodium Chloride) 100 mls @ 200 mls/hr IV Q24H [facility] Last Admin: 12/04/18 16:10 Dose: 200 mls/hr Ibuprofen (Motrin) 800 mg PO Q6H PRN PRN Reason: Pain (moderate 4-6) Last Admin: 12/05/18 08:26 Dose: 800 mg Magnesium Oxide (Magnesium Oxide) 250 mg PO WITHBREAKFAST [facility] Miscellaneous Information (Check Patch) 1 ea TRDERM BEDTIME [facility] Last Admin: 12/04/18 22:00 Dose: Not Given Nicotine (Habitrol) 21 mg TRDERM DAILY [facility] Last Admin: 12/05/18 08:28 Dose: Not Given Ondansetron HCl (Zofran Odt) 4 mg PO Q6H PRN PRN Reason: nausea, able to take PO Ondansetron HCl (Zofran) 4 mg IVPUSH Q6H PRN PRN Reason: Nausea/Vomiting Polyethylene Glycol (Miralax) 17 gm PO DAILY PRN PRN Reason: Constipation Promethazine HCl (Phenergan) 25 mg PO Q6H PRN PRN Reason: nausea, able to take PO Promethazine HCl (Phenergan) 6.25 mg IM Q6H PRN PRN Reason: Nausea/Vomiting Senna/Docusate Sodium (Senna Plus) 1 tab PO BEDTIME PRN PRN Reason: Constipation Sodium Chloride (Saline Flush) 10 ml FLUSH ASDIRECTED PRN PRN Reason: Keep Vein Open Discontinued Medications Sodium Chloride (Normal Saline) 1,000 mls @ 999 mls/hr IV .BOLUS ONE Stop: 12/04/18 13:30 Last Admin: 12/04/18 13:14 Dose: 999 mls/hr Meropenem/Sodium Chloride 1 gm (/ Premix) 50 mls @ 100 mls/hr IV ONETIME ONE Stop: 12/04/18 15:15 Last Admin: 12/04/18 15:05 Dose: 100 mls/hr Sodium Chloride (Normal Saline) 1,000 mls @ 100 mls/hr IV ASDIRECTED [facility] Stop: 12/05/18 07:31 Last Admin: 12/05/18 02:03 Dose: 100 mls/hr Meropenem/Sodium Chloride 1 gm (/ Premix) 50 mls @ 100 mls/hr IV Q8HR [place]ITISH Stop: 12/11/18 22:01 Iopamidol (Isovue-300 (61%)) 75 ml IVPUSH ONETIME ONE Stop: 12/04/18 12:31 Last Admin: 12/04/18 12:48 Dose: 75 ml Morphine Sulfate (Morphine) 2 mg IVPUSH ONETIME ONE Stop: 12/04/18 15:26 Last Admin: 12/04/18 15:59 Dose: 2 mg Potassium Chloride (Klor-Con 10) 40 meq PO ONETIME ONE Stop: 12/04/18 15:34 Last Admin: 12/04/18 16:00 Dose: 40 meq Potassium Chloride (Klor-Con 10) 40 meq PO ONETIME ONE Stop: 12/05/18 08:38 - Exam General: Oriented, Cooperative, No Acute Distress, Other (Asleep but woke up to calling her name. ) HEENT: Pupils Equal, Pupils Reactive, Mucous Membr. Moist/[place] Neck: Supple Lungs: Clear to Auscultation, Normal Respiratory Effort Cardiovascular: Regular Rate, Regular Rhythm GI/Abdominal Exam: Normal Bowel Sounds, Soft, Non-Tender, No Distention Extremities: Normal Inspection, Normal Range of Motion, Non-Tender, No Pedal Edema Skin: Warm, Dry, Intact Neurological: No New Focal Deficit Psy/Mental Status: Alert, Normal Affect, Normal Mood - Problem List & Annotations (1) Polysubstance abuse SNOMED Code(s): 536743495 Code(s): F19.10 - OTHER PSYCHOACTIVE SUBSTANCE ABUSE, UNCOMPLICATED Status : Acute Current Visit: Yes (2) Tobacco use disorder SNOMED Code(s): 896609946 Code(s): F17.200 - NICOTINE DEPENDENCE, UNSPECIFIED, UNCOMPLICATED Status: Acute Current Visit: Yes (3) Hypokalemia SNOMED Code(s): 53438610 Code(s): E87.6 - HYPOKALEMIA Status: Acute Current Visit: Yes (4) Pyelonephritis SNOMED Code(s): 53537834 Code(s): N12 - TUBULO-INTERSTITIAL NEPHRITIS, NOT SPCF ACUTE OR CHRONIC Status: Acute Current Visit: No (5) Sepsis SNOMED Code(s): 54747318 Code(s): A41.9 - SEPSIS, UNSPECIFIED ORGANISM Status: Acute Current Visit : Yes (6) Hypophosphatemia SNOMED Code(s): 6534648 Code(s): E83.39 - OTHER DISORDERS OF PHOSPHORUS METABOLISM Status: Acute Current Visit: Yes - Problem List Review Problem List Initiated/Reviewed/Updated: Yes - My Orders Last 24 Hours: My Active Orders 12/04/18 15:21 Oxygen Therapy [RC] .PRN Up ad Kalli [RC] ASDIRECTED VTE/DVT Education [RC] .PRN Vital Signs [RC] 00,04,08,12,16,20 Acetaminophen [Tylenol] 650 mg PO Q4H PRN Bisacodyl [Dulcolax] 5 mg PO DAILY PRN Docusate Sodium [Colace] 100 mg PO BID PRN Docusate Sodium/Sennosides [Senna Plus] 1 tab PO BEDTIME PRN Ibuprofen [Motrin] 800 mg PO Q6H PRN Ondansetron [Zofran ODT] 4 mg PO Q6H PRN Ondansetron [Zofran] 4 mg IVPUSH Q6H PRN Polyethylene Glycol 3350 [MiraLAX] 17 gm PO DAILY PRN Promethazine [Phenergan] 25 mg PO Q6H PRN Promethazine [Phenergan] 6.25 mg IM Q6H PRN Resuscitation Status Routine 12/04/18 16:00 cefTRIAXone [Rocephin] 2 gm Sodium Chloride 0.9% [Normal Saline] 100 ml IV Q24H 12/04/18 16:58 Sodium Chloride 0.9% [Saline Flush] 10 ml FLUSH ASDIRECTED PRN Saline Lock Insert [OM.PC] Routine 12/04/18 21:00 Check Patch 1 ea TRDERM BEDTIME 12/04/18 Dinner Regular Diet [DIET] 12/05/18 09:00 Enoxaparin [Lovenox] 40 mg SUBCUT DAILY Magnesium Oxide 250 mg PO WITHBREAKFAST Nicotine [Habitrol] 21 mg TRDERM DAILY - Plan Plan:: #Sepsis #Pyelonephritis: - Patient presented with left flank pain, positive CT findings of pyelonephritis , leukocytosis, and tachypnea. Was started on Cipro for UTI in October. - Reportedly did not complete antibiotics. - Follow up on blood and urine cultures - Continue Rocephin, - UCx positive for Strep, follow up for sensitivities #Left flank pain: Controlled - Recieved one time dose of IV morphine. - Patient encouraged to report pain <7 so we can avoid opiates. - Ibuprofen and tylenol - IV hydration #Hypokalemia: - Oral replacement - Monitor renal function and replace electrolytes #Hypophosphatemia: - Oral Neutra phos replacement. - Monitor and replace electrolytes. #Tobacco use disorder: smokes 1 pack of cigarettes daily. - NRT - Smoking cessation counseling. #Polysubstance abuse: - Counseling provided. - We will avoid opiates as much as possible. Patient verbalizes understanding and agreement. PPx: DVT: Lovenox GI: Regular diet Code status: Full
[2018-12-05] MEDS: cefTRIAXone 2 GM in Sodium Chloride 0.9% 100 ML IV SCH (16:12)
[2018-12-05] MEDS: Check Patch TRDERM SCH (21:02)
[2018-12-06] MEDS: Ibuprofen 800 MG Tab PO PRN ×3 (00:55→19:50)
[2018-12-06] MEDS: Acetaminophen 325 MG Tab PO PRN ×3 (00:55→19:51)
[2018-12-06] MEDS: Enoxaparin 40 MG/0.4 ML Syringe SUBCUT SCH (08:30)
[2018-12-06] MEDS: Nicotine 21 MG/24 Hr Patch TRDERM SCH (08:30)
--- NOTE | 2018-12-06 11:13 | PCM.PN ---
- General Info Date of Service: 12/06/18 Admission Dx/Problem (Free Text): Admission Diagnosis/Problem Admission Diagnosis/Problem Pyelonephritis Subjective Update: No acute events overnight. Denies abdominal pain. Denies f/c, chest pain, shortness of breath, n/v/d/c, dysuria, hematuria, or any new symptoms. - Review of Systems General: Reports: No Symptoms HEENT: Reports: No Symptoms Pulmonary: Reports: No Symptoms Cardiovascular: Reports: No Symptoms Gastrointestinal: Reports: No Symptoms Genitourinary: Reports: No Symptoms Musculoskeletal: Reports: No Symptoms Skin: Reports: No Symptoms Neurological: Reports: No Symptoms Psychiatric: Reports: No Symptoms - Patient Data Vitals - Most Recent: Last Vital Signs Temp 98.3 F 12/06/18 08:00 Pulse 71 12/06/18 08:00 Resp 18 12/06/18 08:00 BP 126/88 12/06/18 08:00 Pulse Ox 98 12/06/18 08:00 Weight - Most Recent: 169 lb 3.2 oz I&O - Last 24 Hours: Intake & Output 12/05/18 12/06/18 12/06/18 22:59 06:59 14:59 Intake Total 995 200 Balance 995 200 Ashok Results Last 24 Hours: Microbiology 12/04/18 11:25 Aerobic Blood Culture - Preliminary Blood NO GROWTH AFTER 1 DAY Anaerobic Blood Culture - Preliminary 12/04/18 11:38 Urine Culture - Final Urine, Voided 12/04/18 14:59 Aerobic Blood Culture - Preliminary Blood NO GROWTH AFTER 1 DAY Anaerobic Blood Culture - Preliminary NO GROWTH AFTER 1 DAY Med Orders - Current: Current Medications Acetaminophen (Tylenol) 650 mg PO Q4H PRN PRN Reason: Pain (Mild 1-3)/fever Last Admin: 12/06/18 08:30 Dose: 650 mg Bisacodyl (Dulcolax) 5 mg PO DAILY PRN PRN Reason: Constipation Docusate Sodium (Colace) 100 mg PO BID PRN PRN Reason: Constipation Enoxaparin Sodium (Lovenox) 40 mg SUBCUT DAILY [facility] Last Admin: 12/06/18 08:30 Dose: 40 mg Ceftriaxone Sodium 2 gm/ (Sodium Chloride) 100 mls @ 200 mls/hr IV Q24H [facility] Last Infusion: 12/05/18 16:45 Dose: Infused Ibuprofen (Motrin) 800 mg PO Q6H PRN PRN Reason: Pain (moderate 4-6) Last Admin: 12/06/18 08:29 Dose: 800 mg Magnesium Oxide (Magnesium Oxide) 250 mg PO WITHBREAKFAST [facility] Last Admin: 12/06/18 08:29 Dose: 250 mg Miscellaneous Information (Check Patch) 1 ea TRDERM BEDTIME [facility] Last Admin: 12/05/18 21:02 Dose: Not Given Nicotine (Habitrol) 21 mg TRDERM DAILY [facility] Last Admin: 12/06/18 08:30 Dose: Not Given Ondansetron HCl (Zofran Odt) 4 mg PO Q6H PRN PRN Reason: nausea, able to take PO Ondansetron HCl (Zofran) 4 mg IVPUSH Q6H PRN PRN Reason: Nausea/Vomiting Polyethylene Glycol (Miralax) 17 gm PO DAILY PRN PRN Reason: Constipation Promethazine HCl (Phenergan) 25 mg PO Q6H PRN PRN Reason: nausea, able to take PO Promethazine HCl (Phenergan) 6.25 mg IM Q6H PRN PRN Reason: Nausea/Vomiting Senna/Docusate Sodium (Senna Plus) 1 tab PO BEDTIME PRN PRN Reason: Constipation Sodium Chloride (Saline Flush) 10 ml FLUSH ASDIRECTED PRN PRN Reason: Keep Vein Open Discontinued Medications Sodium Chloride (Normal Saline) 1,000 mls @ 999 mls/hr IV .BOLUS ONE Stop: 12/04/18 13:30 Last Admin: 12/04/18 13:14 Dose: 999 mls/hr Meropenem/Sodium Chloride 1 gm (/ Premix) 50 mls @ 100 mls/hr IV ONETIME ONE Stop: 12/04/18 15:15 Last Admin: 12/04/18 15:05 Dose: 100 mls/hr Sodium Chloride (Normal Saline) 1,000 mls @ 100 mls/hr IV ASDIRECTED [facility] Stop: 12/05/18 07:31 Last Admin: 12/05/18 02:03 Dose: 100 mls/hr Meropenem/Sodium Chloride 1 gm (/ Premix) 50 mls @ 100 mls/hr IV Q8HR [facility] Stop: 12/11/18 22:01 Iopamidol (Isovue-300 (61%)) 75 ml IVPUSH ONETIME ONE Stop: 12/04/18 12:31 Last Admin: 12/04/18 12:48 Dose: 75 ml Morphine Sulfate (Morphine) 2 mg IVPUSH ONETIME ONE Stop: 12/04/18 15:26 Last Admin: 12/04/18 15:59 Dose: 2 mg Potassium Chloride (Klor-Con 10) 40 meq PO ONETIME ONE Stop: 12/04/18 15:34 Last Admin: 12/04/18 16:00 Dose: 40 meq Potassium Chloride (Klor-Con 10) 40 meq PO ONETIME ONE Stop: 12/05/18 08:38 Last Admin: 12/05/18 10:26 Dose: 40 meq - Exam General: Alert, Oriented, Cooperative, No Acute Distress HEENT: Pupils Equal, Pupils Reactive, Mucous Membr. Moist/[place] Lungs: Clear to Auscultation, Normal Respiratory Effort Cardiovascular: Regular Rate, Regular Rhythm GI/Abdominal Exam: Normal Bowel Sounds, Soft, Non-Tender, No Distention Extremities: Normal Inspection, Non-Tender, No Pedal Edema Skin: Warm, Dry, Intact Neurological: No New Focal Deficit Psy/Mental Status: Alert, Normal Affect, Homicidal Ideation - Problem List & Annotations (1) Polysubstance abuse SNOMED Code(s): 157004176 Code(s): F19.10 - OTHER PSYCHOACTIVE SUBSTANCE ABUSE, UNCOMPLICATED Status : Acute Current Visit: Yes (2) Tobacco use disorder SNOMED Code(s): 970941967 Code(s): F17.200 - NICOTINE DEPENDENCE, UNSPECIFIED, UNCOMPLICATED Status: Acute Current Visit: Yes (3) Hypokalemia SNOMED Code(s): 86242878 Code(s): E87.6 - HYPOKALEMIA Status: Acute Current Visit: Yes (4) Pyelonephritis SNOMED Code(s): 69771120 Code(s): N12 - TUBULO-INTERSTITIAL NEPHRITIS, NOT SPCF ACUTE OR CHRONIC Status: Acute Current Visit: No (5) Sepsis SNOMED Code(s): 79264854 Code(s): A41.9 - SEPSIS, UNSPECIFIED ORGANISM Status: Acute Current Visit : Yes (6) Hypophosphatemia SNOMED Code(s): 7964570 Code(s): E83.39 - OTHER DISORDERS OF PHOSPHORUS METABOLISM Status: Acute Current Visit: Yes - Problem List Review Problem List Initiated/Reviewed/Updated: Yes - My Orders Last 24 Hours: My Active Orders 12/05/18 16:07 Blood Culture x2 Reflex Set [OM.PC] Stat 12/05/18 16:55 CULTURE BLOOD [BC] Stat 12/05/18 17:00 CULTURE BLOOD [BC] Stat 12/07/18 05:11 BASIC METABOLIC PANEL,BMP [CHEM] AM CBC W/O DIFF,HEMOGRAM [HEME] AM MAGNESIUM [CHEM] AM PHOSPHORUS [CHEM] AM - Plan Plan:: #Sepsis #Pyelonephritis: - Patient presented with left flank pain, positive CT findings of pyelonephritis , leukocytosis, and tachypnea. Was started on Cipro for UTI in October. - Reportedly did not complete antibiotics. - Follow up on blood cultures for sensitivities - Urine cultures with polymicrobial isolates. - Continue Rocephin, \ #Left flank pain: Controlled - Recieved one time dose of IV morphine. - Patient encouraged to report pain <7 so we can avoid opiates. - Ibuprofen and tylenol #Hypokalemia: - Oral replacement - Monitor renal function and replace electrolytes #Hypophosphatemia: - Oral Neutra phos replacement. - Monitor and replace electrolytes. #Tobacco use disorder: smokes 1 pack of cigarettes daily. - NRT - Smoking cessation counseling. #Polysubstance abuse: - Counseling provided. - We will avoid opiates as much as possible. Patient verbalizes understanding and agreement. PPx: DVT: Lovenox GI: Regular diet Code status: Full
[2018-12-06] MEDS: cefTRIAXone 2 GM in Sodium Chloride 0.9% 100 ML IV SCH (16:13)
[2018-12-06] MEDS ORDERED: Metoprolol Tartrate 5 MG/5 ML SDV IVPUSH ONE ×2 (16:17→19:59)
[2018-12-06] MEDS: amLODIPine 5 MG Tab PO SCH (17:20)
[2018-12-06] MEDS: Check Patch TRDERM SCH (21:19)
[2018-12-07 07:24] LABS: ANION GAP 12.5; CHLORIDE,CL 104 mmol/L (101-111); SODIUM,NA 138 mmol/L (135-145)
[2018-12-07] MEDS ORDERED: Potassium Chloride 10 MEQ Tab.ER PO ONE (07:34)
[2018-12-07] MEDS: Acetaminophen 325 MG Tab PO PRN (08:28)
[2018-12-07] MEDS: amLODIPine 5 MG Tab PO SCH (08:28)
[2018-12-07] MEDS: Ibuprofen 800 MG Tab PO PRN (08:29)
[2018-12-07] MEDS: Enoxaparin 40 MG/0.4 ML Syringe SUBCUT SCH (08:31)
[2018-12-07] MEDS: Nicotine 21 MG/24 Hr Patch TRDERM SCH (08:31)
[2018-12-07] MEDS ORDERED: Metoprolol Succinate 25 MG Tab.ER PO SCH (10:15)
[2018-12-07] MEDS: cefTRIAXone 2 GM in Sodium Chloride 0.9% 100 ML IV SCH (16:39)
--- NOTE | 2018-12-07 17:18 | PCM.DCSUM1 ---
Discharge Summary - Hospital Course Free Text/Narrative:: Patient is a 28 y.o female with medical history significant for UTI, gestational HTN, substance use disorder, and tobacco use disorder who was admitted for pyelonephritis. Blood cultures and urine cultures were obtained and she was started on rocephin. Blood cultures came back positive for E coli sensitive to rocephin. Patient clinically improved. Echo obtained and pending ( prelim read shows decreased EF). Urine culture with polymicrobial growth. She was discharged home to follow up with cardiology and to complete total of 14 days of IV antibiotics with rocephin. Blood pressures were elevated. She was started on amlodipine and toprol. HPI Initial Comments: Patient is a 28 y.o female with medical history significant for UTI, gestational HTN, substance use disorder, and tobacco use disorder who presented to the ED with complaints of left flank pain that started yesterday. Patient reports that she started having 8/10 left flank, non-radiating pain yesterday associated with chills. States she has not taken any medication for this. Denies any trauma. Had nausea yesterday but denies emesis. Took reglan for nausea, which helped. She reports that she was seen in October and diagnosed with UTI. She was started on Cipro and discharged home with outpatient follow up. Did not make her follow up appointment. She denies dysuria or hematuria, chest pain, SOB, d/c, or any new symptoms. Smokes one pack of cigarettes daily. Injects meth occasionally and smokes marijuana almost every da Diagnosis: Stroke: No - Discharge Data Discharge Date: 12/07/18 Discharge Disposition: Home, Self-Care 01 Condition: Good - Discharge Diagnosis/Problem(s) (1) Polysubstance abuse SNOMED Code(s): 117260720 ICD Code: F19.10 - OTHER PSYCHOACTIVE SUBSTANCE ABUSE, UNCOMPLICATED Status : Acute Current Visit: Yes (2) Tobacco use disorder SNOMED Code(s): 082583246 ICD Code: F17.200 - NICOTINE DEPENDENCE, UNSPECIFIED, UNCOMPLICATED Status : Acute Current Visit: Yes (3) Hypokalemia SNOMED Code(s): 38694548 ICD Code: E87.6 - HYPOKALEMIA Status: Acute Current Visit: Yes (4) Pyelonephritis SNOMED Code(s): 88808502 ICD Code: N12 - TUBULO-INTERSTITIAL NEPHRITIS, NOT SPCF ACUTE OR CHRONIC Status: Acute Current Visit: No (5) Sepsis SNOMED Code(s): 20236298 ICD Code: A41.9 - SEPSIS, UNSPECIFIED ORGANISM Status: Acute Current Visit: Yes (6) Hypophosphatemia SNOMED Code(s): 5230238 ICD Code: E83.39 - OTHER DISORDERS OF PHOSPHORUS METABOLISM Status: Acute Current Visit: Yes - Discharge Plan *PRESCRIPTION DRUG MONITORING PROGRAM REVIEWED*: Not Applicable *COPY OF PRESCRIPTION DRUG MONITORING REPORT IN PATIENT MARCOS: Not Applicable Prescriptions/Med Rec: amLODIPine [Norvasc] 5 mg PO DAILY #30 tablet Metoprolol Succinate [Toprol XL] 12.5 mg PO DAILY #30 tab.er Home Medications: Home Meds Metoprolol Succinate [Toprol XL] 12.5 mg PO DAILY #30 tab.er 12/07/18 [Rx] amLODIPine [Norvasc] 5 mg PO DAILY #30 tablet 12/07/18 [Rx] cefTRIAXone [Rocephin] 2 gm IV Q24H adv 12/07/18 [Rx] Patient Handouts: Metoprolol tablets, Pyelonephritis, Adult, [id number], Ceftriaxone injection, Amlodipine tablets Referrals: PCP,None [Ordering Only Provider] - - Discharge Summary/Plan Comment DC Time >30 min.: Yes - General Info Date of Service: 12/07/18 Admission Dx/Problem (Free Text: Admission Diagnosis/Problem Admission Diagnosis/Problem Pyelonephritis Subjective Update: No acute events overnight. Denies abdominal pain. Denies f/c, chest pain, shortness of breath, n/v/d/c, dysuria, hematuria, or any new symptoms. - Patient Data Vitals - Most Recent: Last Vital Signs Temp 98.8 F 12/07/18 07:25 Pulse 82 12/07/18 11:30 Resp 20 12/07/18 11:30 BP 147/91 H 12/07/18 11:30 Pulse Ox 100 12/07/18 11:30 Weight - Most Recent: 169 lb 3.2 oz I&O - Last 24 hours: Intake & Output 12/07/18 12/07/18 12/07/18 06:59 14:59 22:59 Intake Total 550 1050 Balance 550 1050 Lab Results - Last 24 hrs: Laboratory Results - last 24 hr 12/07/18 12/07/18 Range/Units 06:05 06:05 WBC 5.7 (5.0-10.0) 10^3/uL RBC 4.18 L (4.2-5.4) 10^6/uL Hgb 10.6 L (12.0-16.0) g/dL Hct 34.0 L (37.0-47.0) % MCV 81.3 (80-100) fL MCH 25.4 L (27.0-34.0) pg MCHC 31.2 L (33.0-35.0) g/dL Plt Count 261 (150-450) 10^3/uL Sodium 138 (135-145) mmol/L Potassium 3.5 L (3.6-5.0) mmol/L Chloride 104 (101-111) mmol/L Carbon Dioxide 25.0 (21.0-31.0) mmol/L Anion Gap 12.5 BUN 7 (7-18) mg/dL Creatinine 0.5 L (0.6-1.3) mg/dL Est Cr Clr Drug Dosing 156.81 mL/min Estimated GFR (MDRD) > 60 Glucose 91 (74-105) mg/dL Calcium 8.1 L (8.4-10.2) mg/dl Phosphorus 3.8 (2.5-4.6) mg/dL Magnesium 1.8 (1.8-2.5) mg/dL TOMÁS Results - Last 24 hrs: Microbiology 12/05/18 17:00 Aerobic Blood Culture - Preliminary Blood - Venous - Lab Draw NO GROWTH AFTER 2 DAYS Anaerobic Blood Culture - Preliminary NO GROWTH AFTER 2 DAYS 12/05/18 16:55 Aerobic Blood Culture - Preliminary Blood - Venous NO GROWTH AFTER 2 DAYS Anaerobic Blood Culture - Preliminary NO GROWTH AFTER 2 DAYS 12/04/18 14:59 Aerobic Blood Culture - Preliminary Blood NO GROWTH AFTER 3 DAYS Anaerobic Blood Culture - Preliminary NO GROWTH AFTER 3 DAYS 12/04/18 11:25 Aerobic Blood Culture - Preliminary Blood NO GROWTH AFTER 3 DAYS Anaerobic Blood Culture - Final Escherichia Coli Med Orders - Current: Current Medications Acetaminophen (Tylenol) 650 mg PO Q4H PRN PRN Reason: Pain (Mild 1-3)/fever Last Admin: 12/07/18 08:28 Dose: 650 mg Amlodipine Besylate (Norvasc) 5 mg PO DAILY [facility] Last Admin: 12/07/18 08:28 Dose: 5 mg Bisacodyl (Dulcolax) 5 mg PO DAILY PRN PRN Reason: Constipation Docusate Sodium (Colace) 100 mg PO BID PRN PRN Reason: Constipation Enoxaparin Sodium (Lovenox) 40 mg SUBCUT DAILY [facility] Last Admin: 12/07/18 08:31 Dose: 40 mg Ceftriaxone Sodium 2 gm/ (Sodium Chloride) 100 mls @ 200 mls/hr IV Q24H [facility] Last Admin: 12/07/18 16:39 Dose: 200 mls/hr Ibuprofen (Motrin) 800 mg PO Q6H PRN PRN Reason: Pain (moderate 4-6) Last Admin: 12/07/18 08:29 Dose: 800 mg Magnesium Oxide (Magnesium Oxide) 250 mg PO WITHBREAKFAST [facility] Last Admin: 12/07/18 08:27 Dose: 250 mg Metoprolol Succinate (Toprol Xl) 12.5 mg PO DAILY [facility] Last Admin: 12/07/18 11:24 Dose: 12.5 mg Miscellaneous Information (Check Patch) 1 ea TRDERM BEDTIME [facility] Last Admin: 12/06/18 21:19 Dose: Not Given Nicotine (Habitrol) 21 mg TRDERM DAILY [facility] Last Admin: 12/07/18 08:31 Dose: Not Given Ondansetron HCl (Zofran Odt) 4 mg PO Q6H PRN PRN Reason: nausea, able to take PO Ondansetron HCl (Zofran) 4 mg IVPUSH Q6H PRN PRN Reason: Nausea/Vomiting Polyethylene Glycol (Miralax) 17 gm PO DAILY PRN PRN Reason: Constipation Promethazine HCl (Phenergan) 25 mg PO Q6H PRN PRN Reason: nausea, able to take PO Promethazine HCl (Phenergan) 6.25 mg IM Q6H PRN PRN Reason: Nausea/Vomiting Senna/Docusate Sodium (Senna Plus) 1 tab PO BEDTIME PRN PRN Reason: Constipation Sodium Chloride (Saline Flush) 10 ml FLUSH ASDIRECTED PRN PRN Reason: Keep Vein Open Discontinued Medications Sodium Chloride (Normal Saline) 1,000 mls @ 999 mls/hr IV .BOLUS ONE Stop: 12/04/18 13:30 Last Admin: 12/04/18 13:14 Dose: 999 mls/hr Meropenem/Sodium Chloride 1 gm (/ Premix) 50 mls @ 100 mls/hr IV ONETIME ONE Stop: 12/04/18 15:15 Last Admin: 12/04/18 15:05 Dose: 100 mls/hr Sodium Chloride (Normal Saline) 1,000 mls @ 100 mls/hr IV ASDIRECTED [facility] Stop: 12/05/18 07:31 Last Admin: 12/05/18 02:03 Dose: 100 mls/hr Meropenem/Sodium Chloride 1 gm (/ Premix) 50 mls @ 100 mls/hr IV Q8HR [facility] Stop: 12/11/18 22:01 Iopamidol (Isovue-300 (61%)) 75 ml IVPUSH ONETIME ONE Stop: 12/04/18 12:31 Last Admin: 12/04/18 12:48 Dose: 75 ml Metoprolol Tartrate (Lopressor) 5 mg IVPUSH ONETIME ONE Stop: 12/06/18 16:18 Last Admin: 12/06/18 17:25 Dose: 5 mg Metoprolol Tartrate (Lopressor) 5 mg IVPUSH ONETIME ONE Stop: 12/06/18 20:00 Last Admin: 12/06/18 20:14 Dose: 5 mg Morphine Sulfate (Morphine) 2 mg IVPUSH ONETIME ONE Stop: 12/04/18 15:26 Last Admin: 12/04/18 15:59 Dose: 2 mg Potassium Chloride (Klor-Con 10) 40 meq PO ONETIME ONE Stop: 12/04/18 15:34 Last Admin: 12/04/18 16:00 Dose: 40 meq Potassium Chloride (Klor-Con 10) 40 meq PO ONETIME ONE Stop: 12/05/18 08:38 Last Admin: 12/05/18 10:26 Dose: 40 meq Potassium Chloride (Klor-Con 10) 40 meq PO ONETIME ONE Stop: 12/07/18 07:35 Last Admin: 12/07/18 08:27 Dose: 40 meq - Exam General: Reports: Alert, Oriented, Cooperative, No Acute Distress HEENT: Reports: Pupils Equal, Pupils Reactive, Mucous Membr. Moist/[place] Neck: Reports: Supple Lungs: Reports: Clear to Auscultation, Normal Respiratory Effort Cardiovascular: Reports: Regular Rate, Regular Rhythm, No Murmurs GI/Abdominal Exam: Normal Bowel Sounds, Soft, Non-Tender, No Distention Extremities: Normal Inspection, Non-Tender, No Pedal Edema Skin: Reports: Warm, Dry, Intact Neurological: Reports: No New Focal Deficit Psy/Mental Status: Reports: Alert, Normal Affect, Normal Mood
== END 2018-12-07 17:20 | disposition home or self-care (01) | DRG 872 ==
LOC: DL.ED 11:26 → DL.MS 15:02
PROVIDERS: ADMIT Internal Medicine; ATTEND Internal Medicine
DX: A41.9 Sepsis, unspecified organism (principal); N12 Tubulo-interstitial nephritis, not specified as acute or chronic; I10 Essential (primary) hypertension; F15.90 Other stimulant use, unspecified, uncomplicated; F12.90 Cannabis use, unspecified, uncomplicated; B96.20 Unspecified Escherichia coli [E. coli] as the cause of diseases classified elsewhere; F17.210 Nicotine dependence, cigarettes, uncomplicated; F19.10 Other psychoactive substance abuse, uncomplicated; E87.6 Hypokalemia; E83.39 Other disorders of phosphorus metabolism; E83.89 Other disorders of mineral metabolism; Z79.899 Other long term (current) drug therapy; Z88.1 Allergy status to other antibiotic agents; Z71.6 Tobacco abuse counseling; Z71.51 Drug abuse counseling and surveillance of drug abuser
CPT/HCPCS: 36415; 74177; 80048; 80053; 80305-QW; 81001; 81025; 83605; 83735; 84100; 85025; 85027; 87040; 87077; 87086; 87186; 93306; 96361; 96374; 99285-25; A9270-GY; J0696; J1650; J2185; J2270; J3490; J7030; J7050; Q9967

== ENCOUNTER 2021-06-25 20:03 | Emergency (ER) | payer MEDICAID ==
[2021-06-25] MEDS ORDERED: Ondansetron 4 MG/2 ML SDV IVPUSH ONE (20:07)
[2021-06-25] MEDS ORDERED: MVI, Adult with Vitamin K 10 ML, Folic Acid 1 MG, Thiamine 100 MG in Lactated Ringers 1... IV ONE ×4 (20:09)
[2021-06-25 20:53] LABS: CHLORIDE,CL 101 mmol/L (98-107); SODIUM,NA 138 mmol/L (136-145)
[2021-06-25] MEDS ORDERED: Potassium Chloride 10 MEQ in Premix Bag 1 BAG IV ONE (20:59)
[2021-06-25 23:47] LABS: AMPHETAMINES,URINE POSITIVE (NEGATIVE); BARBITURATES,URINE NEGATIVE (NEGATIVE); BENZODIAZEPINE,URINE NEGATIVE (NEGATIVE); MDMA (ECSTASY), URINE POSITIVE (NEGATIVE); METHADONE,URINE NEGATIVE (NEGATIVE); METHAMPHETAMINES,URINE POSITIVE (NEGATIVE); OPIATES,URINE NEGATIVE (NEGATIVE); OXYCODONE,URINE NEGATIVE (NEGATIVE); PHENCYCLIDINE,URINE NEGATIVE (NEGATIVE); TCA,URINE NEGATIVE (NEGATIVE)
== END 2021-06-26 00:02 | disposition home or self-care (01) ==
LOC: DL.ED 20:03
DX: R10.12 Left upper quadrant pain (principal); I10 Essential (primary) hypertension; Z88.0 Allergy status to penicillin
CPT/HCPCS: 36415; 80053; 80305-QW; 80307; 81001; 82150; 83690; 84703; 85025; 96365; 96367; 96375; 99282; 99284-25; J2405; J3411; J3480; J3490; J7120

== ENCOUNTER 2022-02-01 12:36 | Emergency (ER) | payer MEDICAID ==
[2022-02-01] MEDS ORDERED: Ondansetron 4 MG Tab.DIS PO ONE (12:37)
[2022-02-01] MEDS ORDERED: Metoclopramide 10 MG/2 ML SDV IVPUSH ONE (13:27)
[2022-02-01] MEDS ORDERED: Famotidine 20 MG/2 ML SDV IVPUSH ONE (13:27)
[2022-02-01 13:47] LABS: AMPHETAMINES,URINE NEGATIVE (NEGATIVE); BARBITURATES,URINE NEGATIVE (NEGATIVE); BENZODIAZEPINE,URINE NEGATIVE (NEGATIVE); MDMA (ECSTASY), URINE NEGATIVE (NEGATIVE); METHADONE,URINE NEGATIVE (NEGATIVE); METHAMPHETAMINES,URINE NEGATIVE (NEGATIVE); OPIATES,URINE NEGATIVE (NEGATIVE); OXYCODONE,URINE NEGATIVE (NEGATIVE); PHENCYCLIDINE,URINE NEGATIVE (NEGATIVE); TCA,URINE NEGATIVE (NEGATIVE)
[2022-02-01 14:03] LABS: ANION GAP 11.3 mEq/L (7-13); CHLORIDE,CL 98 mmol/L (98-107); SODIUM,NA 139 mmol/L (136-145)
[2022-02-01 14:04] LABS: ESTIMATED GFR 98 mL/min (>=60)
[2022-02-01] MEDS ORDERED: Iopamidol 612 MG/ML 100 ML Bottle IVPUSH ONE (14:21)
[2022-02-01] MEDS ORDERED: Ondansetron 4 MG Tab.DIS ONE (16:50)
== END 2022-02-01 16:55 | disposition home or self-care (01) ==
LOC: DL.ED 12:36
DX: K80.20 Calculus of gallbladder without cholecystitis without obstruction (principal); E87.6 Hypokalemia; I10 Essential (primary) hypertension; Z72.0 Tobacco use; Z88.0 Allergy status to penicillin; Z79.899 Other long term (current) drug therapy
CPT/HCPCS: 36415; 74177; 80053; 80305; 80307; 81001; 82140; 82150; 83605; 83690; 83735; 84703; 85025; 86140; 96374; 96375; 99284; A9270; J2765; J3490; Q9967

== ENCOUNTER 2022-02-13 00:35 | Emergency (ER) | payer MEDICAID | END 2022-02-13 01:10 | disposition left against medical advice (07) | LOC: DL.ED 00:35 | DX: R10.12 Left upper quadrant pain (principal); I10 Essential (primary) hypertension; Z88.0 Allergy status to penicillin; Z79.899 Other long term (current) drug therapy | CPT/HCPCS: 99284 ==

== ENCOUNTER 2022-02-13 12:50 | Emergency (ER) | payer MEDICAID ==
[2022-02-13] MEDS ORDERED: Sodium Chloride 0.9% 10 ML Syringe FLUSH PRN (12:53)
[2022-02-13 13:35] LABS: ANION GAP 17.8 mEq/L (7-13); CHLORIDE,CL 103 mmol/L (98-107); SODIUM,NA 140 mmol/L (136-145)
[2022-02-13 13:37] LABS: ESTIMATED GFR 109 mL/min (>=60)
[2022-02-13] MEDS ORDERED: Promethazine 25 MG/ML SDV IM ONE (14:15)
[2022-02-13] MEDS ORDERED: HYDROmorphone 0.5 MG/0.5 ML Syringe IVPUSH ONE (14:16)
[2022-02-13 14:23] LABS: AMPHETAMINES,URINE NEGATIVE (NEGATIVE); BARBITURATES,URINE NEGATIVE (NEGATIVE); BENZODIAZEPINE,URINE NEGATIVE (NEGATIVE); MDMA (ECSTASY), URINE NEGATIVE (NEGATIVE); METHADONE,URINE NEGATIVE (NEGATIVE); METHAMPHETAMINES,URINE POSITIVE (NEGATIVE); OPIATES,URINE POSITIVE (NEGATIVE); OXYCODONE,URINE NEGATIVE (NEGATIVE); PHENCYCLIDINE,URINE NEGATIVE (NEGATIVE); TCA,URINE NEGATIVE (NEGATIVE)
== END 2022-02-13 16:57 | disposition home or self-care (01) ==
LOC: DL.ED 12:50
DX: K80.11 Calculus of gallbladder with chronic cholecystitis with obstruction (principal); I10 Essential (primary) hypertension; Z88.0 Allergy status to penicillin; Z79.899 Other long term (current) drug therapy; Z20.822 Contact with and (suspected) exposure to COVID-19
CPT/HCPCS: 36415; 76705; 80053; 80305; 80307; 81001; 82150; 83605; 83690; 83735; 85025; 86140; 87635; 96372; 96374; 99285; J1170; J2550; J3490; U0002

== ENCOUNTER 2022-03-18 03:29 | Emergency (ER) | payer MEDICAID ==
[2022-03-18] MEDS ORDERED: Labetalol 20 MG/4 ML Syringe IVPUSH ONE (04:14)
[2022-03-18] MEDS ORDERED: Ketorolac 30 MG/ML SDV IVPUSH ONE (04:16)
[2022-03-18 04:32] LABS: RESPIRATORY SYNCYTIAL VIR NAA NEGATIVE (NEGATIVE)
[2022-03-18 04:34] LABS: CORONAVIRUS COVID-19 NAA POSITIVE (NEGATIVE)
== END 2022-03-18 05:43 | disposition home or self-care (01) ==
LOC: DL.ED 03:29
DX: U07.1 COVID-19 (principal); I10 Essential (primary) hypertension; F17.210 Nicotine dependence, cigarettes, uncomplicated; Z88.0 Allergy status to penicillin
CPT/HCPCS: 0241U; 96374; 96375; 99284; J1885; J3490

== ENCOUNTER 2023-03-01 05:32 | Observation (INO) | payer MEDICAID ==
[2023-03-01] MEDS ORDERED: Acetaminophen 500 MG Tab PO ONE (05:42)
[2023-03-01] MEDS ORDERED: Sodium Chloride 0.9% 1,000 ML IV ONE ×2 (05:42→05:58)
[2023-03-01] MEDS ORDERED: Ondansetron 4 MG/2 ML SDV IVPUSH ONE (05:43)
[2023-03-01 05:52] LABS: BASOPHILS PERCENT AUTO 0.1 % (0.0-1.0); EOSINOPHILS PERCENT AUTO 0.2 % (1.0-3.0); HEMATOCRIT 36.2 % (37.0-47.0); HEMOGLOBIN 11.3 g/dL (12.0-16.0); MEAN CORPUSCULAR HEMOGLOBIN 22.7 pg (27.0-34.0); MEAN CORPUSCULAR HGB CONC 31.2 g/dL (33.0-35.0); MEAN CORPUSCULAR VOLUME 72.7 fL (80-100); MONOCYTES PERCENT AUTO 4.2 % (2-8); NEUTROPHILS PERCENT AUTO 91.5 % (42.2-75.2); PLATELET COUNT,PLT 336 10^3/uL (150-450); RED BLOOD CELL COUNT 4.98 10^6/uL (4.2-5.4); WHITE BLOOD CELL COUNT,WBC 24.8 10^3/uL (5.0-10.0)
[2023-03-01] MEDS ORDERED: HYDROmorphone 0.5 MG/0.5 ML Syringe IVPUSH ONE (05:58)
[2023-03-01] MEDS: Sodium Chloride 0.9% 10 ML Syringe FLUSH PRN ×2 (06:15→13:33)
[2023-03-01 06:19] LABS: A/G RATIO 0.8; ALBUMIN 3.4 g/dL (3.4-5.0); ANION GAP 10.8 mEq/L (7-13); BILIRUBIN TOTAL 0.3 mg/dL (0.2-1.0); BUN/CREATININE RATIO 11.7 (No establ ref range); C-REACTIVE PROTEIN 1.56 ng/dL (<=0.50); CALCIUM 8.3 mg/dL (8.5-10.1); CREATININE 0.6 mg/dL (0.55-1.02); EST CRCL DRUG DOSING (CG) 126.01 mL/min; MAGNESIUM 1.8 mg/dL (1.8-2.4); POTASSIUM,K 3.8 mmol/L (3.5-5.1); PROTEIN TOTAL,TP 7.5 g/dL (6.4-8.2)
[2023-03-01 06:28] LABS: APPEARANCE,URINE CLEAR (CLEAR); BILIRUBIN,URINE NEGATIVE (NEGATIVE); COLOR,URINE YELLOW (YELLOW); GLUCOSE,URINE NEGATIVE (NEGATIVE); KETONES,URINE NEGATIVE (NEGATIVE); LEUKOCYTE ESTERASE,URINE SMALL (NEGATIVE); NITRITE,URINE NEGATIVE (NEGATIVE); OCCULT BLOOD,URINE NEGATIVE (NEGATIVE); PROTEIN,URINE NEGATIVE (NEGATIVE); UROBILINOGEN,URINE 0.2 mg/dL (0.2-1.0)
[2023-03-01] MEDS ORDERED: Iopamidol 612 MG/ML 100 ML Bottle IVPUSH ONE (06:33)
[2023-03-01 06:49] LABS: EPITHELIAL CELLS,URINE MODERATE /HPF (NOT SEEN); MUCUS,URINE MODERATE /LPF (NOT SEEN)
[2023-03-01 06:50] LABS: AMORPHOUS SEDIMENT,URINE FEW /HPF (NOT SEEN); BACTERIA,URINE MODERATE /HPF (0-FEW/HPF); RBC,URINE 0-5 /HPF (0-5)
[2023-03-01] MEDS ORDERED: HYDROmorphone 1 MG/ML Syringe IVPUSH ONE (06:59)
[2023-03-01 07:01] LABS: AMPHETAMINES,URINE POSITIVE (NEGATIVE); BARBITURATES,URINE NEGATIVE (NEGATIVE); BENZODIAZEPINE,URINE NEGATIVE (NEGATIVE); MDMA (ECSTASY), URINE POSITIVE (NEGATIVE); METHADONE,URINE NEGATIVE (NEGATIVE); METHAMPHETAMINES,URINE POSITIVE (NEGATIVE); OPIATES,URINE POSITIVE (NEGATIVE); OXYCODONE,URINE NEGATIVE (NEGATIVE); PHENCYCLIDINE,URINE NEGATIVE (NEGATIVE); TCA,URINE NEGATIVE (NEGATIVE)
[2023-03-01] MEDS ORDERED: Haloperidol Lactate 5 MG/ML SDV IVPUSH ONE (10:04)
[2023-03-01] MEDS ORDERED: LORazepam 0.5 MG Tab PO PRN (12:41)
[2023-03-01] MEDS ORDERED: MVI, Adult with Vitamin K 10 ML, Folic Acid 1 MG, Thiamine 100 MG in Lactated Ringers 1... IV ONE ×4 (12:41)
[2023-03-01] MEDS ORDERED: Thiamine 100 MG in Sodium Chloride 0.9% 50 ML IV ONE (12:41)
[2023-03-01] MEDS ORDERED: LORazepam 2 MG/ML SDV IV PRN (12:41)
[2023-03-01] MEDS ORDERED: hydrALAZINE 20 MG/ML SDV IVPUSH PRN (12:44)
[2023-03-01] MEDS ORDERED: Metoprolol Tartrate 5 MG/5 ML SDV IVPUSH PRN (12:44)
[2023-03-01] MEDS ORDERED: Ciprofloxacin in D5W 400 MG in Premix Bag 1 BAG IV ONE ×2 (12:45)
[2023-03-01] MEDS ORDERED: metroNIDAZOLE/Normal Saline 500 MG in Premix Bag 1 BAG IV ONE (12:46)
[2023-03-01] MEDS ORDERED: Ondansetron 4 MG/2 ML SDV IVPUSH PRN (12:47)
[2023-03-01] MEDS ORDERED: Albuterol/Ipratropium 3.0-0.5 MG/3 ML Neb Soln NEB PRN (12:47)
[2023-03-01] MEDS ORDERED: Acetaminophen 325 MG Tab PO PRN (12:47)
[2023-03-01] MEDS ORDERED: Polyethylene Glycol 3350 Powder 17 GM Packet PO PRN (12:47)
[2023-03-01] MEDS ORDERED: Ketorolac 30 MG/ML SDV IVPUSH PRN (12:47)
[2023-03-01] MEDS ORDERED: HYDROmorphone 0.5 MG/0.5 ML Syringe IVPUSH PRN (12:47)
[2023-03-01] MEDS ORDERED: Sennosides/Docusate Sodium 50-8.6 MG Tab PO PRN (12:47)
[2023-03-01] MEDS ORDERED: Magnesium Hydroxide 400 MG/5 ML Susp 30 ML Cup PO PRN (12:47)
[2023-03-01] MEDS ORDERED: traMADol 50 MG Tab PO PRN (12:50)
[2023-03-01] MEDS ORDERED: Haloperidol Lactate 5 MG/ML SDV IVPUSH PRN (12:51)
[2023-03-01] MEDS: Sucralfate Suspension 1 GM/10 ML Cup PO SCH ×3 (16:32→22:00)
[2023-03-01] MEDS ORDERED: metroNIDAZOLE/Normal Saline 500 MG in Premix Bag 1 BAG IV SCH (21:00)
[2023-03-01] MEDS: Saccharomyces Boulardii (Probiotic) 250 MG Cap PO SCH ×2 (21:43→22:00)
[2023-03-01] MEDS: Famotidine 20 MG Tab PO SCH (21:43)
[2023-03-01] MEDS: Ciprofloxacin in D5W 400 MG in Premix Bag 1 BAG IV SCH ×2 (21:44)
[2023-03-01] MEDS: metroNIDAZOLE/Normal Saline 500 MG in Premix Bag 1 BAG IV SCH (21:48)
[2023-03-01] MEDS ORDERED: Lactulose Soln 10 GM/15 ML 30 ML UD Cup PO PRN (22:23)
[2023-03-01] MEDS ORDERED: Bisacodyl 5 MG Tab PO PRN (22:24)
[2023-03-02 06:29] LABS: BASOPHILS PERCENT AUTO 0.1 % (0.0-1.0); EOSINOPHILS PERCENT AUTO 0.8 % (1.0-3.0); HEMATOCRIT 33.5 % (37.0-47.0); HEMOGLOBIN 10.3 g/dL (12.0-16.0); LYMPHOCYTES PERCENT AUTO 5.1 % (20.5-50.1); MEAN CORPUSCULAR HEMOGLOBIN 22.6 pg (27.0-34.0); MEAN CORPUSCULAR HGB CONC 30.7 g/dL (33.0-35.0); MEAN CORPUSCULAR VOLUME 73.6 fL (80-100); MONOCYTES PERCENT AUTO 4.3 % (2-8); NEUTROPHILS PERCENT AUTO 89.7 % (42.2-75.2); PLATELET COUNT,PLT 262 10^3/uL (150-450); RED BLOOD CELL COUNT 4.55 10^6/uL (4.2-5.4)
[2023-03-02 07:03] LABS: ALBUMIN 2.4 g/dL (3.4-5.0); ANION GAP 11.4 mEq/L (7-13); BILIRUBIN TOTAL 0.7 mg/dL (0.2-1.0); BUN/CREATININE RATIO 12.7 (No establ ref range); CALCIUM 8.3 mg/dL (8.5-10.1); CREATININE 0.63 mg/dL (0.55-1.02); EST CRCL DRUG DOSING (CG) 120.01 mL/min; MAGNESIUM 1.7 mg/dL (1.8-2.4); POTASSIUM,K 3.4 mmol/L (3.5-5.1); PROTEIN TOTAL,TP 6.1 g/dL (6.4-8.2)
[2023-03-02 07:05] LABS: A/G RATIO 0.65
[2023-03-02] MEDS ORDERED: Potassium Chloride 10 MEQ Tab.ER PO ONE (07:45)
[2023-03-02] MEDS ORDERED: Magnesium Sulfate/Water 2 GM in Premix Bag 1 BAG IV ONE (07:45)
[2023-03-02] MEDS: Sucralfate Suspension 1 GM/10 ML Cup PO SCH ×2 (07:52→11:29)
[2023-03-02] MEDS: Ciprofloxacin in D5W 400 MG in Premix Bag 1 BAG IV SCH ×2 (08:10)
[2023-03-02] MEDS: Saccharomyces Boulardii (Probiotic) 250 MG Cap PO SCH (08:12)
[2023-03-02] MEDS: Famotidine 20 MG Tab PO SCH (08:14)
[2023-03-02] MEDS ORDERED: Labetalol 100 MG Tab PO SCH (09:00)
[2023-03-02] MEDS ORDERED: Nicotine 21 MG/24 Hr Patch TRDERM SCH (09:00)
[2023-03-02] MEDS: metroNIDAZOLE/Normal Saline 500 MG in Premix Bag 1 BAG IV SCH (10:00)
[2023-03-02] MEDS ORDERED: Folic Acid 1 MG Tab PO SCH (21:00)
[2023-03-02] MEDS ORDERED: Thiamine 100 MG Tab PO SCH (21:00)
[2023-03-02] MEDS ORDERED: Multivitamin Tab PO SCH (21:00)
== END 2023-03-02 13:41 | disposition left against medical advice (07) ==
LOC: DL.ED 05:32 → DL.MS 11:02 → DL.ED 11:03
PROVIDERS: ADMIT Internal Medicine; ATTEND Internal Medicine
DX: A41.9 Sepsis, unspecified organism (principal); K80.11 Calculus of gallbladder with chronic cholecystitis with obstruction; I10 Essential (primary) hypertension; K59.00 Constipation, unspecified; N39.0 Urinary tract infection, site not specified; D72.829 Elevated white blood cell count, unspecified; D50.9 Iron deficiency anemia, unspecified; E87.1 Hypo-osmolality and hyponatremia; E87.6 Hypokalemia; E83.42 Hypomagnesemia; F17.210 Nicotine dependence, cigarettes, uncomplicated; Z79.899 Other long term (current) drug therapy
CPT/HCPCS: 36415; 71045; 74177; 80053; 80305; 80307; 81001; 81025; 82150; 82550; 83605; 83690; 83735; 85025; 86140; 87040; 87086; 96361; 96365; 96366; 96367; 96375; 96376; 99284; 99285; A9270; J0744; J1170; J1630; J1836; J2405; J3370; J3411; J3475; J3490; J7030; J7040; J7120; Q9967; 96368; 99222; 99238; G0378

== ENCOUNTER 2023-06-28 19:45 | Emergency (ER) | payer MEDICAID, OTHER ==
[2023-06-28] MEDS: Lidocaine 1% 5 ML VIAL INJECT ONE (20:19)
[2023-06-28] MEDS: Bacitracin Oint 1 GM U/D Packet TOP ONE (20:19)
[2023-06-28] MEDS: Diphtheria,Pertussis(Acell),Tetanus Vaccine 0.5 ML Syringe IM ONE (20:19)
== END 2023-06-28 20:29 ==
LOC: DL.ED 19:45
DX: S61.216A Laceration without foreign body of right little finger without damage to nail, initial encounter (principal); Z79.899 Other long term (current) drug therapy; Z88.1 Allergy status to other antibiotic agents; W22.8XXA Striking against or struck by other objects, initial encounter
CPT/HCPCS: 12001; 90471; 90715; 99282; 99283-25; A9270-GY; J3490

== ENCOUNTER 2023-08-16 17:12 | Emergency (ER) | payer MEDICAID ==
[2023-08-16] MEDS: Take Home: Lidocaine 2% Viscous Solution 15 ML UD, 2 Cup Pack PO ONE (19:51)
== END 2023-08-16 19:55 | disposition home or self-care (01) ==
LOC: DL.ED 17:12
DX: K08.89 Other specified disorders of teeth and supporting structures (principal); F17.210 Nicotine dependence, cigarettes, uncomplicated; I10 Essential (primary) hypertension; Z79.899 Other long term (current) drug therapy; Z88.0 Allergy status to penicillin
CPT/HCPCS: 64400; 99283; A9270

== ENCOUNTER 2024-07-22 10:16 | Emergency (ER) | payer MEDICAID ==
[2024-07-22 09:33] LABS: BASOPHILS PERCENT AUTO 0.6 % (0.0-1.0); EOSINOPHILS PERCENT AUTO 1.3 % (1.0-3.0); HEMOGLOBIN 11.6 g/dL (12.0-16.0); LYMPHOCYTES PERCENT AUTO 19.7 % (20.5-50.1); MEAN CORPUSCULAR HEMOGLOBIN 22.2 pg (27.0-34.0); MEAN CORPUSCULAR HGB CONC 30.5 g/dL (33.0-35.0); MEAN CORPUSCULAR VOLUME 72.7 fL (80-100); MONOCYTES PERCENT AUTO 12.3 % (2-8); NEUTROPHILS PERCENT AUTO 66.1 % (42.2-75.2); PLATELET COUNT,PLT 314 10^3/uL (150-450); RED BLOOD CELL COUNT 5.23 10^6/uL (4.2-5.4); WHITE BLOOD CELL COUNT,WBC 6.8 10^3/uL (5.0-10.0)
[2024-07-22] MEDS: Sodium Chloride 0.9% 1,000 ML IV SCH (09:48)
[2024-07-22] MEDS: Ondansetron 4 MG/2 ML SDV IVPUSH ONE (09:48)
[2024-07-22 09:52] LABS: A/G RATIO 0.9; ALANINE AMINOTRANSFERASE,ALT 20 U/L (14-59); ALBUMIN 3.8 g/dL (3.4-5.0); ALKALINE PHOSPHATASE 81 U/L (46-116); ANION GAP 13.2 mEq/L (7-13); ASPARTATE AMNIOTRANSFERASE,AST 13 U/L (15-37); BILIRUBIN TOTAL 0.5 mg/dL (0.2-1.0); BLOOD UREA NITROGEN,BUN 15 mg/dL (7-18); CALCIUM 9.5 mg/dL (8.5-10.1); CARBON DIOXIDE,CO2 32 mmol/L (21-32); CHLORIDE,CL 102 mmol/L (98-107); CREATININE 0.75 mg/dL (0.55-1.02); ESTIMATED GFR 108 mL/min (>=60); GLUCOSE RANDOM 107 mg/dL (70-99); POTASSIUM,K 3.2 mmol/L (3.5-5.1); PROTEIN TOTAL,TP 7.8 g/dL (6.4-8.2); SODIUM,NA 144 mmol/L (136-145)
[2024-07-22 09:57] LABS: HCG QUALITATIVE,SERUM NEGATIVE (NEGATIVE)
[2024-07-22] MEDS: Lisinopril 10 MG Tab PO ONE (10:57)
== END 2024-07-22 12:11 | disposition home or self-care (01) ==
LOC: DL.ED 10:16
DX: R11.2 Nausea with vomiting, unspecified (principal); I10 Essential (primary) hypertension; Z88.1 Allergy status to other antibiotic agents; Z79.899 Other long term (current) drug therapy
CPT/HCPCS: 36415; 70450; 80053; 80307; 82947; 84703; 85025; 96361; 96374; 99283; 99284-25; A9270-GY; J2405; J7030

== ENCOUNTER 2024-07-24 14:19 | Emergency (ER) | payer MEDICAID ==
[2024-07-24] MEDS ORDERED: Sodium Chloride 0.9% 10 ML Syringe FLUSH PRN (14:25)
[2024-07-24 14:35] LABS: BASOPHILS PERCENT AUTO 0.3 % (0.0-1.0); EOSINOPHILS PERCENT AUTO 4.8 % (1.0-3.0); HEMATOCRIT 39.9 % (37.0-47.0); HEMOGLOBIN 11.9 g/dL (12.0-16.0); LYMPHOCYTES PERCENT AUTO 14.1 % (20.5-50.1); MEAN CORPUSCULAR HEMOGLOBIN 21.6 pg (27.0-34.0); MEAN CORPUSCULAR HGB CONC 29.8 g/dL (33.0-35.0); MEAN CORPUSCULAR VOLUME 72.3 fL (80-100); MONOCYTES PERCENT AUTO 8.2 % (2-8); NEUTROPHILS PERCENT AUTO 72.6 % (42.2-75.2); PLATELET COUNT,PLT 324 10^3/uL (150-450); RED BLOOD CELL COUNT 5.52 10^6/uL (4.2-5.4); WHITE BLOOD CELL COUNT,WBC 10.7 10^3/uL (5.0-10.0)
[2024-07-24] MEDS: Metoclopramide 10 MG/2 ML SDV IVPUSH ONE (14:35)
[2024-07-24 14:47] LABS: APPEARANCE,URINE TURBID (CLEAR); COLOR,URINE YELLOW (YELLOW); PH,URINE 7.5 (5.0-9.0)
[2024-07-24 14:48] LABS: BILIRUBIN,URINE NEGATIVE (NEGATIVE); GLUCOSE,URINE NEGATIVE (NEGATIVE); KETONES,URINE 15 (NEGATIVE); LEUKOCYTE ESTERASE,URINE NEGATIVE (NEGATIVE); NITRITE,URINE NEGATIVE (NEGATIVE); OCCULT BLOOD,URINE NEGATIVE (NEGATIVE); PROTEIN,URINE NEGATIVE (NEGATIVE); UROBILINOGEN,URINE 0.2 mg/dL (0.2-1.0)
[2024-07-24 14:52] LABS: AMPHETAMINES,URINE NEGATIVE (NEGATIVE); BARBITURATES,URINE NEGATIVE (NEGATIVE); BENZODIAZEPINE,URINE NEGATIVE (NEGATIVE); MDMA (ECSTASY), URINE NEGATIVE (NEGATIVE); METHADONE,URINE NEGATIVE (NEGATIVE); METHAMPHETAMINES,URINE POSITIVE (NEGATIVE); OPIATES,URINE NEGATIVE (NEGATIVE); OXYCODONE,URINE NEGATIVE (NEGATIVE); PHENCYCLIDINE,URINE NEGATIVE (NEGATIVE); TCA,URINE NEGATIVE (NEGATIVE)
[2024-07-24 14:55] LABS: LACTIC ACID 1.2 mmol/L (0.4-2.0)
[2024-07-24 15:02] LABS: ALANINE AMINOTRANSFERASE,ALT 21 U/L (14-59); ALBUMIN 4.1 g/dL (3.4-5.0); ALKALINE PHOSPHATASE 89 U/L (46-116); ANION GAP 14.6 mEq/L (7-13); ASPARTATE AMNIOTRANSFERASE,AST 18 U/L (15-37); BILIRUBIN TOTAL 0.4 mg/dL (0.2-1.0); BLOOD UREA NITROGEN,BUN 9 mg/dL (7-18); BUN/CREATININE RATIO 13.2 (No establ ref range); CALCIUM 9.7 mg/dL (8.5-10.1); CARBON DIOXIDE,CO2 29 mmol/L (21-32); CHLORIDE,CL 99 mmol/L (98-107); CREATININE 0.68 mg/dL (0.55-1.02); EST CRCL DRUG DOSING (CG) 97.34 mL/min; GLUCOSE RANDOM 100 mg/dL (70-99); LIPASE 39 U/L (16-77); MAGNESIUM 2.1 mg/dL (1.8-2.4); POTASSIUM,K 3.6 mmol/L (3.5-5.1); PROTEIN TOTAL,TP 8.4 g/dL (6.4-8.2); SODIUM,NA 139 mmol/L (136-145)
[2024-07-24 15:04] LABS: C-REACTIVE PROTEIN < 0.50 ng/dL (<=0.50); ESTIMATED GFR 118 mL/min (>=60); ETHANOL BLOOD MEDICAL < 3 mg/dL (0)
[2024-07-24] MEDS: Iopamidol 612 MG/ML 100 ML Bottle IVPUSH ONE (15:06)
[2024-07-24] MEDS: Piperacillin/Tazobactam 4.5 GM in Sodium Chloride 0.9% 100 ML IV ONE (16:59)
[2024-07-24] MEDS: Sodium Chloride 0.9% 1,000 ML IV ONE (17:00)
[2024-07-24] MEDS: Haloperidol Lactate 5 MG/ML SDV IVPUSH ONE (17:55)
== END 2024-07-24 18:29 ==
LOC: DL.ED 14:19
DX: K81.9 Cholecystitis, unspecified (principal); I10 Essential (primary) hypertension; Z88.1 Allergy status to other antibiotic agents; Z79.899 Other long term (current) drug therapy
CPT/HCPCS: 36415; 74160; 80053; 80305-QW; 80307; 81003; 81025; 83605; 83690; 83735; 85025; 86140; 96365; 96375; 99285; 99285-25; J1630; J2543; J2765; J7030; Q9967